=== PATIENT | female | born 1940 | race Caucasian/White ===

== ENCOUNTER 2023-10-25 13:00 | Inpatient (IN) | payer MEDICARE, SELFPAY ==
[2023-10-25] VITALS (22 sets, daily range): BP systolic 115–202; BP diastolic 67–97; PULSE 74–91; RESP 16–29; TEMP 36.1–36.6; O2SAT 95–99; BMI 27.7
--- NOTE | 2023-10-25 13:12 | DI.CT.S_ITS ---
PROCEDURE: CT CERVICAL SPINE WO CON INDICATIONS: fall, hip pain, altered TECHNIQUE: Noncontrast 3 mm thick sections acquired from the skull base to the T4 level. Sagittal and coronal reformats were then constructed. For radiation dose reduction, the following was used: automated exposure control, adjustment of mA and/or kV according to patient size. COMPARISON: None. FINDINGS: Image quality: Excellent. Bones: No fractures or dislocations. Visualized superior ribs are intact. Severe cervical spondylosis. Retrolisthesis of C5 on C6 with associated posterior disc osteophyte complex results in severe canal stenosis at that level. There is also significant multilevel bony foraminal narrowing. Soft tissues: Prevertebral soft tissues are normal in thickness. No paravertebral hematomas. No apical pneumothoraces. Severe biapical emphysematous change. IMPRESSION: 1. No acute cervical fracture or dislocation. 2. Cervical spondylosis with severe canal stenosis C5-C6. There is also severe multilevel foraminal narrowing. 3. Severe biapical emphysematous change. Dictated by: Dl Leung M.D. on 10/25/2023 at 14:09 Approved by: Dl Leung M.D. on 10/25/2023 at 14:12
--- NOTE | 2023-10-25 13:12 | DI.RAD.S_ITS ---
PROCEDURE: XR HIP W PEL IF DONE LT 2V INDICATIONS: fall, hip pain, altered TECHNIQUE: AP pelvis with lateral view(s) of the left hip(s). COMPARISON: [facility], , HIP 2V LEFT, 01/21/2007, 12:18. FINDINGS: Bones: No fractures or dislocations. Pelvic ring appears intact. No suspicious bony lesions. Moderate to severe bilateral hip arthritic change. No erosions. Degenerative changes are present within the lower lumbar spine. Soft tissues: The visualized bowel gas pattern is normal. No suspicious soft tissue calcifications. IMPRESSION: No visualized acute fracture or dislocation. However, if clinical concern and/or pain persist, short interval imaging followup in 7-10 days is recommended, as occult injury cannot be definitively excluded. Dictated by: Yasmin Pedraza M.D. on 10/25/2023 at 14:09 Approved by: Yasmin Pedraza M.D. on 10/25/2023 at 14:09
--- NOTE | 2023-10-25 13:12 | DI.CT.S_ITS ---
PROCEDURE: CT HEAD/BRAIN WO CON INDICATIONS: fall, hip pain, altered TECHNIQUE: Noncontrast 4.5 mm thick angled axial sections acquired from the foramen magnum to the vertex, with coronal and sagittal reformats. For radiation dose reduction, the following was used: automated exposure control, adjustment of mA and/or kV according to patient size. COMPARISON: [facility], CT, HEAD WITHOUT CONTRAST, 12/27/2007, 13:57. FINDINGS: Image quality: Diagnostic. CSF spaces: Basal cisterns are patent. No extra-axial fluid collections. The ventricles are symmetric in size and shape. Brain: No intracranial bleeds or masses. There is cerebral volume loss for age, with resultant ventricular and sulcal prominence. There are periventricular and deep white matter chronic small vessel ischemic changes. There is intracranial internal carotid artery atherosclerosis. Skull and face: Calvarium and visualized facial bones appear intact, without suspicious lesions. Sinuses: Visualized sinuses and mastoids are clear. IMPRESSION: No acute intracranial pathology. Dictated by: Dl Leung M.D. on 10/25/2023 at 14:08 Approved by: Dl Leung M.D. on 10/25/2023 at 14:09
--- NOTE | 2023-10-25 13:12 | DI.RAD.S_ITS ---
PROCEDURE: XR KNEE LT 1TO2V INDICATIONS: fall, hip pain, altered TECHNIQUE: 2 views of the knee were acquired. COMPARISON: [facility], , KNEE 3V RIGHT, 02/13/2008, 14:45. FINDINGS: Bones: No fractures or dislocations. No suspicious bony lesions. Moderate to severe tricompartmental early change most severe laterally. Periarticular osteophytes are present. No erosions. Soft tissues: Kvrn-ri-mondvtaf joint effusion. No suspicious soft tissue calcifications. 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 Dictated by: Yasmin Pedraza M.D. on 10/25/2023 at 14:10 Approved by: Yasmin Pedraza M.D. on 10/25/2023 at 14:10
--- NOTE | 2023-10-25 13:12 | DI.RAD.S_ITS ---
PROCEDURE: XR CHEST 1V INDICATIONS: fall, hip pain, altered TECHNIQUE: One view of the chest was acquired. COMPARISON: [facility], , CHEST 2 VIEW, 09/08/2008, 15:01. FINDINGS: Surgical changes and devices: None. Lungs and pleura: Mild increased vascularity. Mediastinum: Mediastinal contours appear normal. Heart size is enlarged. Bones and chest wall: No suspicious bony lesions. Overlying soft tissues appear unremarkable. IMPRESSION: Mild increased vascularity suggestive of edema. Dictated by: Yasmin Pedraza M.D. on 10/25/2023 at 14:09 Approved by: Yasmin Pedraza M.D. on 10/25/2023 at 14:09
--- NOTE | 2023-10-25 13:17 | ED_ITS ---
HPI - Fall General Chief Complaint: Fall Stated Complaint: GLF,hip pain,unknown downtime Time Seen by Provider: 10/25/23 13:04 Source: patient, EMS, RN notes reviewed and old records reviewed Mode of arrival: EMS Limitations: no limitations History of Present Illness HPI Narrative: This is an 83-year-old female with history of hypertension, dyslipidemia, patient has some known cognitive decline but was found down on the floor. Had a fall at some point patient does not recall if it was yesterday or today. EMS states she had urinated herself but it has since dried. No obvious skin breakdown. Family had tried to call her yesterday and could not get a hold of her and had checked her emails as she checks it daily she had emailed anyone yesterday. Patient can tell me her name she knows she has at a hospital she does not know where. She does not recall how she got here. She does note she has medical problems but can not tell me what they are. She has no known drug allergies. EMS notes that she has family who called in for a well check just how she was found. Patient was reportedly on aspirin every day as well as amlodipine, candesartan, atorvastatin, HCTZ and hydralazine daily. Patient currently lives independently family lives about an hour away but checks on her daily by phone. Related Data Home Medications Medication Instructions Recorded Confirmed AMLODIPINE BESYLATE (NORVASC) 5 mg PO Q DAY ##0 11/13/06 ASPIRIN (Aspirin *) 162 mg PO Q DAY ##0 11/13/06 Atorvastatin Calcium (Lipitor) 0 PO *UK DOSE/FREQUENCY ##0 11/13/06 Candesartan Cilexetil (Atacand) 16 mg PO Q DAY ##0 11/13/06 Fexofenadine Hydrochloride 0 PO * UK DOSE/FREQUENCY ##0 11/13/06 (Radha) VITAMIN C - 0 PO * UK DOSE/FREQUENCY ##0 11/13/06 (VITAMIN C) [CALCIUM-MAG.] ##0 11/13/06 [FISH CAPS] ##0 11/13/06 [SELENIUM] 200 mcg Q DAY ##0 11/13/06 [] 25 mg PO DAILY ##0 11/13/06 Allergies Allergy/AdvReac Type Severity Reaction Status Date / Time codeine AdvReac Unknown wipes her Verified 10/25/23 13:20 out Review of Systems Review of Systems ROS Unobtainable: All systems reviewed & are unremarkable except as noted in HPI and below Patient History Social History Smoking Status: Never smoker Exam Narrative Exam Narrative: GEN: C-collar prior to arrival. Patient appears in mild distress. HEAD: No evidence of trauma, no raccoon/Marx sign. NECK: Nontender, painless range of motion, trachea midline Positive Nexus criteria, no midline line tenderness, distracting injury, positive for altered mental status, no neuro deficit, recent EtOH. EYES: PERRLA, EOMI ENT: External inspection normal, trachea is midline, TM's are normal no hemotypanum, Nares are clear, no septal hematoma, no dental or oral injury, airway is normal and with normal occlusion, No bony tenderness, mucous membranes are dry. RESP: Chest is nontender and has symmetric movement, no ecchymosis, breath sounds are normal no crackles, wheezes or rales CVS: Heart sounds are normal, no murmur noted, No JVD. ABG/GI: Nontender, soft, normal bowel sounds, no distention, no organomegaly, pelvic rock is negative NEURO: Oriented AOx3, neuro is grossly intact, sensation and motor is normal all 4 extremities moving, cranial nerves II through XII are intact, GCS is 14 PSYCH: Normal mood and affect SKIN: Intact, warm and dry, no crepitus and without decubitus BACK: No CVA tenderness, no vertebral tenderness, no step-off's, no crepitus EXT: Atraumatic, hips are nontender, but patient does have pain with movement of her left hip and knee. She does not have any clearly palpable pain she can not straighten her leg. No pedal edema, normal color and temperature, normal range of motion of extremities with normal tendon exam, 2+ pulses in all four extremities Initial Vital Signs Initial Vital Signs: Vital Signs Pulse Rate 81 10/25/23 13:05 Pulse Oximetry 98 10/25/23 13:05 Course Orders Ordered: ED Orders 10/25/23 13:12 CT cervical spine wo con Stat CT head/brain wo con Stat Chest [XR chest 1V] Stat XR hip w pel if done LT 2V Stat XR knee LT 1to2V Stat EKG-12 Lead Stat 10/25/23 13:13 Complete Blood Count AUTO DIFF Stat Comprehensive Metabolic Panel Stat Lipase Stat Prothrombin Time INR Stat Troponin & CK Cardiac Panel Stat Urinalysis and Microscopic Stat 10/25/23 14:22 US abdomen limited Stat 10/25/23 15:26 BNP [NT-proBNP (BNP-Adult 18+)] Stat Blood Culture Stat CK [Creatine Kinase] Stat Lactate (Lactic Acid) Stat Procalcitonin Stat Trop I [Troponin I] Stat Discontinued Medications Sodium Chloride (Normal Saline 0.9%) 1,000 mls @ 1,000 mls/hr IV BOLUS ONE Stop: 10/25/23 14:11 Last Infusion: 10/25/23 16:01 Dose: Infused Documented By: JOSE M Admin: 10/25/23 14:16 Dose: 1,000 mls/hr Documented By: JOSE M Ceftriaxone Sodium 1,000 mg/ (Sodium Chloride) 100 mls @ 200 mls/hr IV NOW ONE Stop: 10/25/23 14:21 Last Infusion: 10/25/23 16:12 Dose: Infused Documented By: Admin: 10/25/23 15:21 Dose: 200 mls/hr Documented By: JOSE M Vital Signs Vital signs: Vital Signs - 8 hr 10/25/23 13:05 10/25/23 13:07 10/25/23 13:07 Temperature Pulse Rate 81 77 Respiratory Rate Blood Pressure 202/97 H Pulse Oximetry 98 95 Oxygen Delivery Method 10/25/23 13:30 10/25/23 13:31 10/25/23 13:31 Temperature Pulse Rate 78 79 Respiratory Rate 16 19 Blood Pressure 175/82 H Pulse Oximetry 97 96 Oxygen Delivery Method 10/25/23 13:59 10/25/23 13:59 10/25/23 14:00 Temperature Pulse Rate 81 84 Respiratory Rate 16 18 Blood Pressure 193/84 H Pulse Oximetry 98 98 Oxygen Delivery Method 10/25/23 14:00 10/25/23 14:30 10/25/23 14:31 Temperature Pulse Rate 80 80 Respiratory Rate 21 17 Blood Pressure 193/77 H Pulse Oximetry 98 99 Oxygen Delivery Method 10/25/23 14:31 10/25/23 14:39 10/25/23 15:00 Temperature 97.8 F Pulse Rate 74 87 Respiratory Rate 19 20 Blood Pressure 181/81 H 181/81 H Pulse Oximetry 98 98 Oxygen Delivery Method Room Air 10/25/23 15:00 10/25/23 15:30 10/25/23 16:00 Temperature Pulse Rate 84 82 Respiratory Rate 23 16 Blood Pressure 193/84 H Pulse Oximetry 98 97 Oxygen Delivery Method 10/25/23 16:08 10/25/23 16:08 10/25/23 16:30 Temperature Pulse Rate 89 85 Respiratory Rate 22 Blood Pressure 165/85 H Pulse Oximetry 98 97 Oxygen Delivery Method 10/25/23 16:31 10/25/23 16:31 10/25/23 17:00 Temperature Pulse Rate 91 H 87 Respiratory Rate 21 Blood Pressure 115/97 H Pulse Oximetry 98 99 Oxygen Delivery Method 10/25/23 17:00 10/25/23 17:30 10/25/23 17:30 Temperature Pulse Rate 83 Respiratory Rate 22 Blood Pressure 162/72 H 143/76 H Pulse Oximetry 98 Oxygen Delivery Method MDM - Fall Lab Data 10/25/23 13:13 10/25/23 13:13 Labs: Lab Results 10/25/23 10/25/23 Range/Units 13:13 15:26 WBC 17.3 H (4.5-11.0) X10^3/uL RBC 5.23 H (4.0-5.2) X10^6/uL Hgb 16.2 H (12.0-16.0) g/dL Hct 47.7 H (36-46) % MCV 91.2 (80-100) fL MCH 31.0 (26-34) PG MCHC 33.9 (30-36) % RDW 14.1 (11.6-14.8) % Plt Count 279 (150-400) X10^3/uL Neut % (Auto) 90.8 H (50-75) % Lymph % (Auto) 2.9 L (25-40) % [place] % (Auto) 5.9 (3-14) % Eos % (Auto) 0.2 L (2-4) % Baso % (Auto) 0.2 (0-2) % Neut # (Auto) 21261 H (7472-5672) /uL Lymph # (Auto) 500 L (7842-1726) /uL [place] # (Auto) 1000 H (0-900) /uL Eos # (Auto) 0 (0-450) /uL Baso # (Auto) 0 (0-100) /uL PT 15.1 H (9.4-12.5) SECONDS INR 1.3 (0.9-1.3) Sodium 137 (137-145) mmol/L Potassium 3.5 (3.4-5.1) mmol/L Chloride 104 (98-107) mmol/L Carbon Dioxide 23 (22-32) mmol/L BUN 31 H (7-17) mg/dL Creatinine 0.66 (0.52-1.04) mg/dL Estimated GFR > 60 (>60) mL/min BUN/Creatinine Ratio 47.0 H (6-22) Glucose 107 (80-110) mg/dL Lactate 1.7 (0.7-2.1) mmol/L Calcium 9.7 (8.4-10.2) mg/dL Total Bilirubin 3.1 H (0.2-1.3) mg/dL AST 116 H (14-36) IU/L ALT 48 H (<35) IU/L Alkaline Phosphatase 74 (38-126) U/L Total Creatine Kinase 1048 H 950 H (30-135) U/L Troponin I 0.129 H* 0.121 H* (0.01-0.034) ng/mL NT-Pro-B Natriuret Pep 5780 H (<450) pg/mL Total Protein 7.7 (6.3-8.2) g/dL Albumin 4.3 (3.5-5.0) g/dL Globulin 3.4 (1.7-4.1) g/dL Albumin/Globulin Ratio 1.3 (1.0-2.8) Lipase < 10 L (23-300) U/L Procalcitonin 0.11 (<0.5) ng/mL Urine Color Yellow Urine Appearance Clear Urine pH 6.0 (4.5-8.0) Ur Specific [place] 1.020 (1.000-1.035) Urine Protein 1+ H (Negative) Urine Glucose (UA) Negative (Negative) g/dL Urine Ketones 1+ H (NEGATIVE) Urine Occult Blood Negative (Negative) Urine Nitrate Negative (Negative) Urine Bilirubin Negative (NEGATIVE) Urine Urobilinogen 0.2 (0.2) E.U./dL Ur Leukocyte Esterase Trace H (NEGATIVE) Urine RBC 0-1/hpf (0-5/HPF) Urine WBC 0-1/hpf (0-5/HPF) Ur Squamous Epith Cells 5-10 /hpf H (0-5/HPF) Urine Bacteria Occasional (0-1) (None) Ur Culture Indicated? Cult not indicated Vol Urine Centrifuged 10ml (spun) ECG Data Attestation: I personally reviewed and interpreted this ECG as follows: Prior ECG tracings: not available for review Interpretation: Sinus rhythm rate 80 ME 134 QRS of [address] elevation, nonspecific change. No priors for comparison. MDM Narrative Medical decision making narrative: 83-year-old female with suspected ground level fall but unwitnessed patient does not recall how she fell either today or yesterday. Patient was last seen yesterday. Has some known chronic cognitive decline but worsened from baseline. Patient does have some complaints of left hip or knee pain she does not have any bony tenderness but does have pain when moved although can not really localize easily to hip or knee. Patient appears dry overall. Labs white count of 17 hemoglobin 16, platelets of 279. INR 1.5 electrolytes sodium 137 potassium 3 5 chloride 104 CO2 23 BUN 31 creatinine 0.6 glucose of 107 lactate Procalcitonin Total bili 3.1 with AST of 116 ALT of 48 alk-phos is 74 lipase is less than 10. Total CK is 1048, trending down words at 9:50 a.m.. Initial troponin was 0.129 and positive, repeat is slightly improved at 0.121 BNP is 57 80 EKG patient has some T-wave inversion 2 3 AVF no elevation. No priors for comparison Urine 1+ protein, 1+ ketones trace leuks 5-[address] shows no acute change CT C-spine shows no acute fracture cervical spondylosis severe canal stenosis with multilevel foraminal narrowing CV your biapical emphysematous change. Chest x-ray shows increased vascularity suggestive edema. Hip x-ray shows no acute fracture dislocation. Knee shows [id number] tricompartmental arthritic change progressive since 2007 but no fracture. Aazu-ky-toemanzy joint effusion. Abdominal ultrasound shows liver measuring 10.4 cm no focal mass gallbladder absent common bile duct 3.9 mm pancreas visualized unremarkable. Patient's daughters at bedside patient does have a POLST form she is DNR/DNI after discussion and review patient's findings her repeat troponin which is slightly trended down words. She notes that her mother would not wish to continue with care and would want to be comfort measures only. Had a long discussion about level of care no antibiotics, no interventions on once comfort measures only only. She does note she would labs drawn last week at that time her bilirubin was 1.7. She has had some mild cognitive decline over time but not anything to this level and patient is actively hallucinating in the room. Call Dr. Blackman, hospitalist accepts for observation. Reviewed goals of care with family. Did update pulse form, patient is DNR/DNI/comfort measures only. Discharge Plan Departure Patient Disposition: Admitted as Observation Clinical Impression: Fall, Acute UTI, Altered mental status, Non-ST elevation OR (NSTEMI), Elevated LFTs Prescriptions: No Action AMLODIPINE BESYLATE (NORVASC) 5 mg PO Q DAY Qty: 0 Candesartan Cilexetil (Atacand) 16 mg PO Q DAY Qty: 0 [] 25 mg PO DAILY Qty: 0 Atorvastatin Calcium (Lipitor) 0 PO *UK DOSE/FREQUENCY Qty: 0 Fexofenadine Hydrochloride (Radha) 0 PO * UK DOSE/FREQUENCY Qty: 0 VITAMIN C - (VITAMIN C) 0 PO * UK DOSE/FREQUENCY Qty: 0 [FISH CAPS] Qty: 0 ASPIRIN (Aspirin *) 162 mg PO Q DAY Qty: 0 [CALCIUM-MAG.] Qty: 0 [SELENIUM] 200 mcg Q DAY Qty: 0 Admit Date/Time: 10/25/23 18:25
[2023-10-25 13:38] LABS: Add Manual Diff / Slide Review NO; Basophils Absolute Auto 0 /uL (0-100); Basophils Percent Auto 0.2 % (0-2); Eosinophils Absolute Auto 0 /uL (0-450); Eosinophils Percent Auto 0.2 % (2-4); Hematocrit 47.7 % (36-46); Hemoglobin 16.2 g/dL (12.0-16.0); Lymphocytes Absolute Auto 500 /uL (1100-4500); Lymphocytes Percent Auto 2.9 % (25-40); Mean Corpuscular HGB Conc 33.9 % (30-36); Mean Corpuscular Volume 91.2 fL (80-100); Monocytes Absolute Auto 1000 /uL (0-900); Monocytes Percent Auto 5.9 % (3-14); Neutrophils Absolute Auto 15700 /uL (1500-7000); Neutrophils Percent Auto 90.8 % (50-75); Platelet Count 279 X10^3/uL (150-400); Red Blood Cell Count 5.23 X10^6/uL (4.0-5.2); Red Cell Distribution Width 14.1 % (11.6-14.8); White Blood Cell Count 17.3 X10^3/uL (4.5-11.0)
[2023-10-25 13:41] LABS: Appearance Urine UA CLEAR; Bilirubin Urine UA NEGATIVE (NEGATIVE); Color Urine UA YELLOW; Glucose Urine UA NEGATIVE (Negative); Ketones Urine UA 1+ (NEGATIVE); Leukocyte Esterase Urine UA TRACE (NEGATIVE); Nitrite Urine UA NEGATIVE (Negative); Occult Blood Urine UA NEGATIVE (Negative); Protein Urine UA 1+ (Negative); Urobilinogen Urine UA 0.2 E.U./dL (0.2)
[2023-10-25 13:46] LABS: INR 1.3 (0.9-1.3); Prothrombin Time 15.1 SECONDS (9.4-12.5)
[2023-10-25 13:50] LABS: Alanine Aminotransferase 48 IU/L (<35); Albumin 4.3 g/dL (3.5-5.0); Albumin Globulin Ratio 1.3 (1.0-2.8); Alkaline Phosphatase 74 U/L (38-126); Aspartate Aminotransferase 116 IU/L (14-36); Bilirubin Total 3.1 mg/dL (0.2-1.3); Blood Urea Nitrogen 31 mg/dL (7-17); Calcium 9.7 mg/dL (8.4-10.2); Carbon Dioxide 23 mmol/L (22-32); Chloride 104 mmol/L (98-107); Creatine Kinase 1048 U/L (30-135); Estimated Glomerular Filt Rate > 60 mL/min (>60); Globulin 3.4 g/dL (1.7-4.1); Glucose 107 mg/dL (80-110); HEMOLYSIS 21 (0-50); Potassium 3.5 mmol/L (3.4-5.1); Sodium 137 mmol/L (137-145); Total Protein 7.7 g/dL (6.3-8.2)
[2023-10-25 13:52] LABS: Bacteria Urine Occasional (0-1); Culture Indicated Urine Cult Not Indicated; RBC Urine 0-1/HPF (0-5/HPF); Squamous Epithelial Cell Urine 5-10 /HPF (0-5/HPF); Urine Volume 10mL (spun); WBC Urine 0-1/HPF (0-5/HPF)
[2023-10-25 14:15] LABS: Lipase < 10 U/L (23-300)
[2023-10-25] MEDS: SODIUM CHLORIDE 0.9% 1,000 ML 1000 ML IV (14:16)
[2023-10-25 14:17] LABS: Troponin I 0.129 ng/mL (0.01-0.034)
--- NOTE | 2023-10-25 14:22 | DI.US.S_ITS ---
PROCEDURE: US ABDOMEN LIMITED INDICATIONS: LEUKOCYTOSIS; ELEVATED LFTS TECHNIQUE: Real-time focused scanning was performed of the abdomen, with image documentation. COMPARISON: None. FINDINGS: Liver measures 10.4 cm. No focal mass. Gallbladder is absent. Common bile duct measures 3.9 mm. Pancreas within visualized portions is unremarkable. IMPRESSION: No focal hepatic mass. Dictated by: Yasmin Pedraza M.D. on 10/25/2023 at 15:18 Approved by: Yasmin Pedraza M.D. on 10/25/2023 at 15:18
[2023-10-25] MEDS: cefTRIAXone 1,000 MG in SODIUM CHLORIDE 0.9% 100 ML 200 MG IV (15:21)
[2023-10-25 15:42] LABS: Creatine Kinase 950 U/L (30-135)
[2023-10-25 15:52] LABS: NT-proBNP (BNP-Adult 18+) 5780 pg/mL (<450)
[2023-10-25 15:55] LABS: Lactate (Lactic Acid) 1.7 mmol/L (0.7-2.1)
[2023-10-25 16:04] LABS: Troponin I 0.121 ng/mL (0.01-0.034)
[2023-10-25 16:12] LABS: Procalcitonin 0.11 ng/mL (<0.5)
--- NOTE | 2023-10-25 16:12 | PC.NURSE ---
Pt's daughter reports patient is having increased hallucinations and is arguing with hallucinations. Pt pulling at IV lines. I applied IV tubing netting over IV's on left arm. Pt oriented to room and call light.
--- NOTE | 2023-10-25 18:23 | PC.NURSE ---
in and out cath
--- NOTE | 2023-10-25 21:58 | P.HP_ITS ---
History of Present Illness History of Present Illness Date Patient Seen: 10/25/23 Time Patient Seen: 21:00 Chief complaint: GLF,hip pain,unknown downtime Narrative: 83-year-old female with history of hypertension, dyslipidemia, patient has some known cognitive decline but was found down on the floor. Had a fall at some point patient does not recall if it was yesterday or today. EMS states she had urinated herself but it has since dried. No obvious skin breakdown. Family had tried to call her yesterday and could not get a hold of her At the time of admission unable to provide history, drowsy, confused [facility] Medical History (Updated 10/26/23 @ 06:49 by Akhil aKng MD) HTN (hypertension) Cognitive deficits Social History household members: none Smoking Status: Never smoker alcohol intake: former Meds Home Medications and Allergies Home Medications Medication Instructions Recorded Confirmed Type AMLODIPINE BESYLATE (NORVASC) 2.5 mg PO DAILY ##0 11/13/06 10/25/23 History Candesartan Cilexetil (Atacand) 32 mg PO DAILY ##0 11/13/06 10/25/23 History fluticasone fur. 100 mcg-umeclid 1 ea inhalation DAILY 10/25/23 10/25/23 History 62.5 mcg-vilant 25 mcg inhalat.powder (Trelegy Ellipta) hydralazine 25 mg tablet 25 mg PO TID 10/25/23 10/25/23 History hydrochlorothiazide 25 mg tablet 25 mg PO QAM 10/25/23 10/25/23 History simvastatin 20 mg tablet 10 mg PO ONCE PM 10/25/23 10/25/23 History Allergies Allergy/AdvReac Type Severity Reaction Status Date / Time codeine AdvReac Unknown wipes her Verified 10/25/23 13:20 out Review of Systems Review of Systems Narrative: Unobtainable due to encephalopathy and cognitive deficits Exam Vital Signs (past 8 hours): - 10/25/23 13:59 10/25/23 13:59 10/25/23 14:00 Temperature Pulse Rate 81 84 Respiratory Rate 16 18 Blood Pressure 193/84 H Pulse Oximetry 98 98 Oxygen Delivery Method Oxygen Flow Rate 10/25/23 14:00 10/25/23 14:30 10/25/23 14:31 Temperature Pulse Rate 80 80 Respiratory Rate 21 17 Blood Pressure 193/77 H Pulse Oximetry 98 99 Oxygen Delivery Method Oxygen Flow Rate 10/25/23 14:31 10/25/23 14:39 10/25/23 15:00 Temperature 97.8 F Pulse Rate 74 87 Respiratory Rate 19 20 Blood Pressure 181/81 H 181/81 H Pulse Oximetry 98 98 Oxygen Delivery Method Room Air Oxygen Flow Rate 10/25/23 15:00 10/25/23 15:30 10/25/23 16:00 Temperature Pulse Rate 84 82 Respiratory Rate 23 16 Blood Pressure 193/84 H Pulse Oximetry 98 97 Oxygen Delivery Method Oxygen Flow Rate 10/25/23 16:08 10/25/23 16:08 10/25/23 16:30 Temperature Pulse Rate 89 85 Respiratory Rate 22 Blood Pressure 165/85 H Pulse Oximetry 98 97 Oxygen Delivery Method Oxygen Flow Rate 10/25/23 16:31 10/25/23 16:31 10/25/23 17:00 Temperature Pulse Rate 91 H 87 Respiratory Rate 21 Blood Pressure 115/97 H Pulse Oximetry 98 99 Oxygen Delivery Method Oxygen Flow Rate 10/25/23 17:00 10/25/23 17:30 10/25/23 17:30 Temperature Pulse Rate 83 Respiratory Rate 22 Blood Pressure 162/72 H 143/76 H Pulse Oximetry 98 Oxygen Delivery Method Oxygen Flow Rate 10/25/23 18:00 10/25/23 18:00 10/25/23 18:30 Temperature Pulse Rate 86 84 Respiratory Rate 16 19 Blood Pressure 153/68 H Pulse Oximetry 99 98 Oxygen Delivery Method Oxygen Flow Rate 10/25/23 19:00 10/25/23 19:01 10/25/23 19:01 Temperature Pulse Rate 86 87 Respiratory Rate 28 H 29 H Blood Pressure 159/67 H Pulse Oximetry 99 99 Oxygen Delivery Method Oxygen Flow Rate 10/25/23 19:18 Temperature 97 F L Pulse Rate 79 Respiratory Rate 17 Blood Pressure 144/67 H Pulse Oximetry 98 Oxygen Delivery Method Oxygen Flow Rate 0 Oxygen Delivery Method Room Air Oxygen Flow Rate 0 Const Other: in no distress, laying in bed Resp Other: normal respiratory effort Cardio Other: RRR Other: w/o abdominal distension placed Watt in the ED Skin Other: bruising - both legs, right arm pressure wound on sacrum Neuro Other: w/o focal weakness Extrem Other: w/o swelling Psych Other: cognitive deficits Objective Labs 10/26/23 05:40 10/26/23 05:40 Labs: Laboratory Results - last 24 hr 10/25/23 10/25/23 13:13 15:26 WBC 17.3 H RBC 5.23 H Hgb 16.2 H Hct 47.7 H MCV 91.2 MCH 31.0 MCHC 33.9 RDW 14.1 Plt Count 279 Neut % (Auto) 90.8 H Lymph % (Auto) 2.9 L [place] % (Auto) 5.9 Eos % (Auto) 0.2 L Baso % (Auto) 0.2 Neut # (Auto) 20554 H Lymph # (Auto) 500 L [place] # (Auto) 1000 H Eos # (Auto) 0 Baso # (Auto) 0 PT 15.1 H INR 1.3 Sodium 137 Potassium 3.5 Chloride 104 Carbon Dioxide 23 BUN 31 H Creatinine 0.66 Estimated GFR > 60 BUN/Creatinine Ratio 47.0 H Glucose 107 Lactate 1.7 Calcium 9.7 Total Bilirubin 3.1 H AST 116 H ALT 48 H Alkaline Phosphatase 74 Total Creatine Kinase 1048 H 950 H Troponin I 0.129 H* 0.121 H* NT-Pro-B Natriuret Pep 5780 H Total Protein 7.7 Albumin 4.3 Globulin 3.4 Albumin/Globulin Ratio 1.3 Lipase < 10 L Procalcitonin 0.11 Urine Color Yellow Urine Appearance Clear Urine pH 6.0 Ur Specific [place] 1.020 Urine Protein 1+ H Urine Glucose (UA) Negative Urine Ketones 1+ H Urine Occult Blood Negative Urine Nitrate Negative Urine Bilirubin Negative Urine Urobilinogen 0.2 Ur Leukocyte Esterase Trace H Urine RBC 0-1/hpf Urine WBC 0-1/hpf Ur Squamous Epith Cells 5-10 /hpf H Urine Bacteria Occasional (0-1) Ur Culture Indicated? Cult not indicated Vol Urine Centrifuged 10ml (spun) Assessment & Plan Assessment and plan (1) Acute UTI: Status: Acute (2) Acute metabolic encephalopathy: Status: Acute (3) Cognitive deficits: Status: Acute (4) HTN (hypertension): Status: Acute Assessment & Plan narrative: UTI with Acute Metabolic Encephalopathy - Abx, supportive care - she was retaining, now with Watt - voiding trial Cognitive deficits / dementia - supportive care HTN - holding ARB, HCTZ and Norvasc - continue hydralazine COPD - Trellegy E., prn albuterol DVT prophylaxis - SCDs Patient is DNR, DNI, comfort measures
[2023-10-26] VITALS (7 sets, daily range): BP systolic 119–127; BP diastolic 41–51; PULSE 60–88; RESP 16–18; TEMP 37.6; O2SAT 95–99
[2023-10-26 06:00] LABS: Add Manual Diff / Slide Review NO; BUN Creatinine Ratio 54.1 (6-22); Basophils Absolute Auto 0 /uL (0-100); Basophils Percent Auto 0.3 % (0-2); Blood Urea Nitrogen 33 mg/dL (7-17); Calcium 8.9 mg/dL (8.4-10.2); Carbon Dioxide 26 mmol/L (22-32); Chloride 109 mmol/L (98-107); Eosinophils Absolute Auto 200 /uL (0-450); Eosinophils Percent Auto 1.3 % (2-4); Estimated Glomerular Filt Rate > 60 mL/min (>60); Glucose 95 mg/dL (80-110); HEMOLYSIS < 15 (0-50); Hematocrit 40.1 % (36-46); Hemoglobin 13.7 g/dL (12.0-16.0); Lymphocytes Absolute Auto 800 /uL (1100-4500); Lymphocytes Percent Auto 6.2 % (25-40); Mean Corpuscular HGB Conc 34.1 % (30-36); Mean Corpuscular Hemoglobin 30.9 PG (26-34); Mean Corpuscular Volume 90.7 fL (80-100); Monocytes Absolute Auto 1000 /uL (0-900); Monocytes Percent Auto 7.4 % (3-14); Neutrophils Absolute Auto 11500 /uL (1500-7000); Neutrophils Percent Auto 84.8 % (50-75); Platelet Count 242 X10^3/uL (150-400); Potassium 3.2 mmol/L (3.4-5.1); Red Blood Cell Count 4.42 X10^6/uL (4.0-5.2); Red Cell Distribution Width 14.4 % (11.6-14.8); Sodium 140 mmol/L (137-145); White Blood Cell Count 13.6 X10^3/uL (4.5-11.0)
[2023-10-26 11:23] LABS: Magnesium 1.9 mg/dL (1.6-2.3)
[2023-10-26] MEDS: POTASSIUM CHLORIDE 20 MEQ TAB 40 MEQ PO (12:09)
[2023-10-26] MEDS: SODIUM CHLORIDE 0.9% 1,000 ML 100 ML IV (12:10)
[2023-10-26] MEDS: risperiDONE 0.25 MG TABLET 0.5 MG PO ×2 (12:11→21:35)
--- NOTE | 2023-10-26 14:27 | CM.DANOTE ---
Initial DCP Assessment Note Pt is an 83 yo female, resident of [place], presents via EMS after being found down by family in her home. Admitted for further work up and medical management. UTI+ PCP: Unknown at this time Payer: [facility]/[employer] Reviewed chart, patient discussed with Dr Morales. Patient now with an increase in hallucinations and confusion. Family reports patient has hx of Schizophrenia with a psychiatric hospital stay 50 years ago; stable since with depressive sx. Met w/patient's daughter Viridiana and her spouse, introduced role. Family concerned about patient and unsure next steps in discharge planning. Explained that Dr Morales is likely to start an anti-psychotic to see how patient responds, medical plan of care still unfolding and patient's discharge needs unknown at this time. Lengthy conversation with family about patient's general decline at home; discussed options for detention care. Patient lives alone in [place], adult daughter and spouse work, able to come check on patient throughout the week. Family reports an increase in their visits recently to assist patient and feel there has been a cognitive decline over the last year. Family has offered to move patient in with them and patient has declined this so far. Patient has the funding for in home care vs facility care, family report she needs someone with her at night r/t increase in falls. CM team will plan to follow clinical course closely. Discharge needs remain unknown. Unsure whether patient will be considered safe for return home w/HH and family to assist (?) Following for dispo coordination. SD Muñoz Discharge Planning/Care Management CM Discharge Assessment Start: 10/26/23 14:24 Freq: Status: Active Protocol: Document 10/26/23 14:25 COLIN (Rec: 10/26/23 14:27 COLIN [id number]) Discharge Planning Assessment Assigned Ship Worker SD Garcia DPOA/Assigned Designee Name Viridiana Farah, gar[place] Contact Information [phone] Advance Directives? No History Provided By Family Member,Medical Record Prior Living Arrangements House Household Members none Type of transporation used prior to Drives own vehicle admit Independent with ADL's Yes Is patient alert and oriented? Yes: Cognitive decline noted by family Barriers to Discharge Yes Comment Patient currently not at cognitive or functional baseline Transportation Arrangement TBD Additional Comment TBD
[2023-10-26] MEDS: ACETAMINOPHEN 325 MG TABLET 650 MG PO (15:22)
[2023-10-26] MEDS: HYDRALAZINE 25 MG TABLET PO ×2 (15:25→21:35)
[2023-10-26] MEDS: IPRATROPIUM 0.5 MG/2.5 ML NEB INH ×2 (15:48→20:24)
--- NOTE | 2023-10-26 17:51 | PM.PN.1 ---
Subjective Subjective Interval history: Patient actively hallucinating and having delusions. According to daughter and son-in-law she was normal a few days ago. They also noted she has a history of schizophrenia diagnosed in the s and was at that time in a mental hospital. Hasn't been on psych meds since the . Spoke with psychiatry who recommending trialing risperidone. Exam Vital Signs (past 8 hours): - 10/26/23 12:12 10/26/23 15:25 10/26/23 15:48 Pulse Rate 74 72 88 Respiratory Rate 18 Blood Pressure 127/45 L 122/41 L Pulse Oximetry 96 Oxygen Delivery Method Room Air Oxygen Delivery Method Room Air Oxygen Flow Rate 0 Const Other: in no distress, laying in bed, confused Resp Other: normal respiratory effort Cardio Other: RRR Other: w/o abdominal distension placed Watt in the ED Skin Other: bruising - both legs, right arm pressure wound on sacrum Neuro Other: w/o focal weakness Extrem Other: w/o swelling Psych Other: disoriented, delusional Objective Labs 10/26/23 05:40 10/26/23 05:40 Labs: Laboratory Results - last 24 hr 10/26/23 05:40 WBC 13.6 H RBC 4.42 Hgb 13.7 Hct 40.1 MCV 90.7 MCH 30.9 MCHC 34.1 RDW 14.4 Plt Count 242 Neut % (Auto) 84.8 H Lymph % (Auto) 6.2 L [place] % (Auto) 7.4 Eos % (Auto) 1.3 L Baso % (Auto) 0.3 Neut # (Auto) 08516 H Lymph # (Auto) 800 L [place] # (Auto) 1000 H Eos # (Auto) 200 Baso # (Auto) 0 Sodium 140 Potassium 3.2 L Chloride 109 H Carbon Dioxide 26 BUN 33 H Creatinine 0.61 Estimated GFR > 60 BUN/Creatinine Ratio 54.1 H Glucose 95 Calcium 8.9 Magnesium 1.9 PFSH Medical History (Updated 10/26/23 @ 06:49 by Akhil Kang MD) HTN (hypertension) Cognitive deficits Social History household members: none Smoking Status: Never smoker alcohol intake: former Assessment & Plan Assessment & Plan narrative: Acute hallucinations with 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 Nishant frazier who recommending starting risperidone 0.5mg BID and titrating up as needed - UA negative for UTI - head CT negative Urinary retention - she was retaining, now with Watt HTN - holding ARB, HCTZ and Norvasc - continue hydralazine COPD - Jeff Willoughby, prn albuterol DVT prophylaxis - SCDs Patient is DNR/DNI Dispo: Pending improvement in mentation and hallucinations. May need placement.
[2023-10-26] MEDS: cefTRIAXone 1,000 MG in SODIUM CHLORIDE 0.9% 100 ML 200 MG IV (18:14)
[2023-10-26] MEDS: BUDESONIDE 0.5 MG/2 ML NEB INH (20:24)
[2023-10-26] MEDS: polyethylene glycoL 3350 17 GM POWD.PACK PO (21:35)
[2023-10-26] MEDS: SENNOSIDES 8.6 MG TABLET PO (21:35)
[2023-10-27] VITALS (7 sets, daily range): BP systolic 112–120; BP diastolic 56–64; PULSE 66–85; RESP 14–18; TEMP 35.8–36.6; O2SAT 95–97
[2023-10-27] MEDS: ACETAMINOPHEN 325 MG TABLET 650 MG PO ×2 (06:05→21:22)
[2023-10-27 06:08] LABS: Add Manual Diff / Slide Review NO; Basophils Absolute Auto 0 /uL (0-100); Basophils Percent Auto 0.4 % (0-2); Eosinophils Absolute Auto 200 /uL (0-450); Eosinophils Percent Auto 2.3 % (2-4); Hematocrit 38.5 % (36-46); Hemoglobin 13.2 g/dL (12.0-16.0); Lymphocytes Absolute Auto 700 /uL (1100-4500); Lymphocytes Percent Auto 6.7 % (25-40); Mean Corpuscular HGB Conc 34.3 % (30-36); Mean Corpuscular Volume 90.6 fL (80-100); Monocytes Absolute Auto 900 /uL (0-900); Monocytes Percent Auto 8.1 % (3-14); Neutrophils Absolute Auto 8600 /uL (1500-7000); Neutrophils Percent Auto 82.5 % (50-75); Platelet Count 221 X10^3/uL (150-400); Red Blood Cell Count 4.25 X10^6/uL (4.0-5.2); Red Cell Distribution Width 14.5 % (11.6-14.8); White Blood Cell Count 10.5 X10^3/uL (4.5-11.0)
[2023-10-27 06:21] LABS: Blood Urea Nitrogen 27 mg/dL (7-17); Calcium 8.3 mg/dL (8.4-10.2); Carbon Dioxide 25 mmol/L (22-32); Chloride 108 mmol/L (98-107); Estimated Glomerular Filt Rate > 60 mL/min (>60); Glucose 113 mg/dL (80-110); HEMOLYSIS < 15 (0-50); Potassium 3.5 mmol/L (3.4-5.1); Sodium 137 mmol/L (137-145)
[2023-10-27] MEDS: SENNOSIDES 8.6 MG TABLET PO ×2 (10:18→21:23)
[2023-10-27] MEDS: risperiDONE 0.25 MG TABLET 0.5 MG PO ×2 (10:19→21:23)
[2023-10-27] MEDS: POTASSIUM CHLORIDE 20 MEQ TAB PO (10:19)
[2023-10-27] MEDS: HYDRALAZINE 25 MG TABLET PO ×3 (10:20→21:23)
--- NOTE | 2023-10-27 14:35 | PM.PN.1 ---
Subjective Subjective Interval history: Patient less confused today. Knows the month and the year. Exam Vital Signs (past 8 hours): - 10/27/23 06:40 10/27/23 09:35 10/27/23 10:20 Temperature 96.5 F L 97.8 F Pulse Rate 78 85 85 Respiratory Rate 18 18 Blood Pressure 119/56 L 120/64 120/64 Pulse Oximetry 97 97 Oxygen Flow Rate 0 Oxygen Delivery Method Room Air Oxygen Flow Rate 0 Const Other: in no distress, laying in bed, pleasant Resp Other: normal respiratory effort Cardio Other: RRR Other: w/o abdominal distension placed Watt in the ED Skin Other: bruising - both legs, right arm pressure wound on sacrum Neuro Other: w/o focal weakness Extrem Other: w/o swelling Psych Other: oriented x2, much less confused today Objective Labs 10/27/23 05:35 10/27/23 05:35 Labs: Laboratory Results - last 24 hr 10/27/23 05:35 WBC 10.5 RBC 4.25 Hgb 13.2 Hct 38.5 MCV 90.6 MCH 31.0 MCHC 34.3 RDW 14.5 Plt Count 221 Neut % (Auto) 82.5 H Lymph % (Auto) 6.7 L [place] % (Auto) 8.1 Eos % (Auto) 2.3 Baso % (Auto) 0.4 Neut # (Auto) 8600 H Lymph # (Auto) 700 L [place] # (Auto) 900 Eos # (Auto) 200 Baso # (Auto) 0 Sodium 137 Potassium 3.5 Chloride 108 H Carbon Dioxide 25 BUN 27 H Creatinine 0.60 Estimated GFR > 60 BUN/Creatinine Ratio 45.0 H Glucose 113 H Calcium 8.3 L PFSH Medical History (Updated 10/26/23 @ 06:49 by Akhil Kang MD) HTN (hypertension) Cognitive deficits Social History household members: none Smoking Status: Never smoker alcohol intake: former Assessment & Plan Assessment & Plan narrative: Acute hallucinations with 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 Nishant frazier who recommending starting risperidone 0.5mg BID and titrating up as needed - UA negative for UTI - head CT negative - now improving and patient oriented x2 and denies further hallucinations, will continue risperidone at current dose [place] at home - will order PT/OT for tomorrow Urinary retention - she was retaining, now with Watt HTN - holding ARB, HCTZ and Norvasc - continue hydralazine COPD - Jeff Willoughby, prn albuterol DVT prophylaxis - SCDs Patient is DNR/DNI Dispo: Pending further improvement in mentation, and PT/OT evals.
[2023-10-27] MEDS: cefTRIAXone 1,000 MG in SODIUM CHLORIDE 0.9% 100 ML 200 MG IV (17:51)
[2023-10-28] VITALS (7 sets, daily range): BP systolic 108–152; BP diastolic 49–72; PULSE 76–85; RESP 14–18; TEMP 35.9–37.1; O2SAT 96
[2023-10-28 06:27] LABS: Add Manual Diff / Slide Review NO; Basophils Absolute Auto 0 /uL (0-100); Basophils Percent Auto 0.2 % (0-2); Eosinophils Absolute Auto 300 /uL (0-450); Eosinophils Percent Auto 3.2 % (2-4); Hematocrit 37.5 % (36-46); Lymphocytes Absolute Auto 500 /uL (1100-4500); Lymphocytes Percent Auto 6.3 % (25-40); Mean Corpuscular HGB Conc 34.7 % (30-36); Mean Corpuscular Hemoglobin 31.5 PG (26-34); Mean Corpuscular Volume 90.9 fL (80-100); Monocytes Absolute Auto 900 /uL (0-900); Monocytes Percent Auto 10.4 % (3-14); Neutrophils Absolute Auto 6500 /uL (1500-7000); Neutrophils Percent Auto 79.9 % (50-75); Platelet Count 204 X10^3/uL (150-400); Red Blood Cell Count 4.13 X10^6/uL (4.0-5.2); Red Cell Distribution Width 14.2 % (11.6-14.8); White Blood Cell Count 8.2 X10^3/uL (4.5-11.0)
[2023-10-28 06:37] LABS: BUN Creatinine Ratio 32.1 (6-22); Blood Urea Nitrogen 17 mg/dL (7-17); Calcium 8.6 mg/dL (8.4-10.2); Carbon Dioxide 28 mmol/L (22-32); Chloride 107 mmol/L (98-107); Estimated Glomerular Filt Rate > 60 mL/min (>60); Glucose 109 mg/dL (80-110); HEMOLYSIS < 15 (0-50); Potassium 3.6 mmol/L (3.4-5.1); Sodium 137 mmol/L (137-145)
[2023-10-28] MEDS: risperiDONE 0.25 MG TABLET 0.5 MG PO ×2 (09:57→20:49)
[2023-10-28] MEDS: HYDRALAZINE 25 MG TABLET PO (09:58)
[2023-10-28] MEDS: SENNOSIDES 8.6 MG TABLET PO (09:58)
--- NOTE | 2023-10-28 11:01 | PT.IIE ---
Current Diagnoses Metabolic encephalopathy (10/25/23) Essential (primary) hypertension (10/25/23) Urinary tract infection, site not specified (10/25/23) Other symptoms and signs involving cognitive functions and awareness (10/25/23) Medical History (Last Updated 10/26/23 @ 06:49 by Akhil Kang MD) Cognitive deficits HTN (hypertension) Physical Therapy Inpatient Evaluation/Re-Eval M1 PT/OT-IP Prior Functional Status Start: 10/28/23 09:34 Freq: NEEDED Status: Active Protocol: Document 10/28/23 10:20 MB (Rec: 10/28/23 11:01 MB [id number]) Medical Review Prior Functional Status Medical History Reviewed Yes Communication Unsure baseline diet or communication Mobility and Gait Unclear, pt states that she used what sounds like a SBQC, unsure about ADLs and driving Activities of Daily Living and IADL's See above Social History Household Members none Living Arrangements House Number of Stairs To Enter/Railing? Pt is not clear about steps at home. It appears there may be one step to enter and no steps in the home. Home Equipment Front Wheel Walker,Four Wheel Walker,Quad Cane,Straight Cane Employment Status Retired Additional Social History Comment Pt cannot clearly answer other home environment questions. She had a lifeline but did not like to use it and she thinks her daughter, Adelina, took it. Pt does not know where she lives but when offered [employer] by PT, she states she lives there and her daughter may be in [place] and works . M2 PT-IP Current Condition Start: 10/28/23 09:34 Freq: NEEDED Status: Active Protocol: Document 10/28/23 10:20 MB (Rec: 10/28/23 11:01 MB [id number]) Physical Therapy Current Condition Current Condition Evaluation Date 10/28/23 Treatment Diagnosis GLF, confusion M3 PT-IP Subjective Start: 10/28/23 09:34 Freq: NEEDED Status: Active Protocol: Document 10/28/23 10:20 MB (Rec: 10/28/23 11:01 MB [id number]) Subjective Physical Therapy Visit Type Type Initial Evaluation Visit Start Time 10:20 Visit Stop Time 10:50 Number of ONCOLOGY RADIATION PHYSICIAN Visits 0 Physical Therapy Visit Comments Patient Comments When PT asks some questions, pt pleasantly states, I don't believe I can answer that. M4 PT-IP Mobility and Gait Start: 10/28/23 09:34 Freq: NEEDED Status: Active Protocol: Document 10/28/23 10:20 MB (Rec: 10/28/23 11:01 MB [id number]) PT-Bed Mobility Assessment Supine to Sit Supine to Sit Standby Assistance,Head of Bed Elevated,Bedrails Scooting Scooting to Edge of Bed Standby Assistance Scooting Up and Down in Bed Standby Assistance PT-Transfer Assessment Sit to and From Stand Sit to and from Stand Contact Guard Assistance,1 Person Assistance,Use of Upper Extremities Equipment Transfer Assistive Device Gait Belt,Front Wheeled Walker Orthotic/Prosthetic Devices or Brace: No Transfers Transfer Destination Chair Transfer Technique Stepping Transfer Ability Level of Assist Minimal Assistance,1 Person Assistance,Use of Upper Extremities Comments Mobility Comments Pt tends to run into chair twice with RW. She has forward , flexed posture and reports dizziness/light-headedness once up many minutes and standing at RW. BP and HR in RUE sitting is 141/70, 81; standing BP takes two times to read and is 128/54, 78 and after about 2' of standing, third reading is 108/60, 76 and pt reports symptoms and needs to sit down. Gait Assessment Gait Gait Assistance Required: Minimum Assistance Distance (Feet) 5 Able to Maintain Weight Bearing Status Yes During Gait Assistive Devices Assistive Device Gait Belt,Front Wheeled Walker Orthotic/Prosthetic Devices or Brace: No Gait Deviations General Gait Pattern Decreased Feet Clearance, Flexed Trunk Factors Limiting Gait Function Factors Limiting Gait Function Difficulty Following Directions,Limited Range of Motion,Pain,Poor Balance,Poor Safety Awareness PT-Balance Assessment Sitting Balance and Reactions Static Sitting Balance Ability Good Dynamic Sitting Balance Ability Good Standing Balance and Reactions Static Standing Balance Ability Fair Dynamic Standing Balance Ability Fair Device Used RW M5 PT-IP Objective Assessments Start: 10/28/23 09:34 Freq: NEEDED Status: Active Protocol: Document 10/28/23 10:20 MB (Rec: 10/28/23 11:01 MB [id number]) Orientation Orientation/Cognition Level of Alertness Confusional State Orientation Name,Age,Birthday,Month,Date, Year Language Function Ability No Deficits Noted Safety Awareness Decreased Safety Awareness Memory Description 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,[employer] Impaired Gross Range of Motion Upper Extremity ROM Assessment Within Functional Limits Lower Extremity ROM Assessment Within Functional Limits Strength Upper Extremity Strength Assessment Within Functional Limits Lower Extremity Strength Assessment Within Functional Limits Comments Strength Comments Scab over left knee, some areas of ecchymosis M6 PT-IP Treatment Start: 10/28/23 09:34 Freq: NEEDED Status: Active Protocol: Document 10/28/23 10:20 MB (Rec: 10/28/23 11:01 MB [id number]) Physical Therapy Treatment Education Education Provided Safety Other Treatments Other Treatment Performed Orthostatic assessment after gait today given symptoms when up, several transfers M7 PT-IP Assessment and Plan Start: 10/28/23 09:34 Freq: NEEDED Status: Active Protocol: Document 10/28/23 10:20 MB (Rec: 10/28/23 11:01 MB [id number]) PT Summary Assessment and Plan Potential Rehabilitation Potential Good Status of Condition at Evaluation Evolving Summary Impairments Balance,Cognition,Bed Mobility ,Transfers,Gait,Activity Tolerance Progress Towards Goals Slow Progress due to Activity Tolerance Assessment Summary Pt is a pleasant 83 y/o female found down at home after GLF. She has scab over left knee and some bruises and diagnostics are negative. Pt presents with confusion this date and she has trouble answer PLOF and home set-up questions. She becomes light- headed once up on feet several minutes and she has positive orthostatic hypotension when BP and HR checked in sitting and then in standing and she is symptomatic. Pt con't to be at high fall risk given confusion and orthostasis. She is not currently safe to d/c home alone. Goals Bed Mobility Goal Independent Transfer Goal Independent,Cane,Front Wheeled Walker Gait Goal Independent,Cane,Front Wheel Walker Gait Distance 100 Other Goals Pt will ascend and descend at least one step with LRAD and no more than CGA to allow safe home entrance. Days to Meet Goals 5 Frequency of Treatment Frequency Of Treatment Once a Day Treatment Plan Physical Therapy Treatment Plan Bed Mobility Training,Transfer Training,Gait Training, Therapeutic Exercise,Balance Retraining,Discharge Planning, Hot or Cold Pack,Neuromuscular Re-ed,Coordination Retraining ,Manual Therapy Weight Bearing Status Weight Bearing Status Weight Bear as Tolerated Recommendations To Nursing Amount of Assist Needed 1 Person Assist Discharge Recommendations PT Discharge Recommendations SNF Rehab Transportation Needs at Discharge Private Vehicle
--- NOTE | 2023-10-28 12:14 | PM.PN.1 ---
Subjective Subjective Date Patient Seen: 10/28/23 Time Patient Seen: 11:40 Interval history: The patient reports she is feeling better. Her daughter also states that she seems to be doing better with fewer hallucinations on risperidone. She is noted to be orthostatic by Physical therapy, as well as weak and unsteady. Exam Vital Signs (past 8 hours): - 10/28/23 05:54 10/28/23 09:58 10/28/23 11:31 Temperature 96.7 F L 98.2 F Pulse Rate 85 85 Respiratory Rate 17 14 Blood Pressure 152/61 H 152/61 H 126/60 Pulse Oximetry 96 96 Oxygen Flow Rate 0 Oxygen Delivery Method Room Air Oxygen Flow Rate 0 Narrative Exam Narrative: GENERAL: This is a well-nourished, well-developed patient, in no apparent distress. HEAD: Atraumatic. Normocephalic. No temporal or scalp tenderness. EYES: Pupils equal round and reactive. Extraocular motions intact. No scleral icterus. No injection or drainage. ENT: Mucous membranes pink and moist. NECK: Trachea midline. No JVD, bruits or lymphadenopathy. Supple, nontender, no meningeal signs. CARDIOVASCULAR: Regular rate and rhythm without murmurs, gallops, or rubs. RESPIRATORY: Clear to auscultation. GASTROINTESTINAL: Abdomen soft, non-tender, nondistended. EXTREMITIES: No clubbing, cyanosis, or edema. BACK: Nontender without deformity or crepitance. No flank tenderness. NEUROLOGIC: Alert, oriented, speech fluent, full upper and lower motor strength, no focal deficits evident. DERMATOLOGIC: No rashes or skin lesions. Objective Labs 10/28/23 06:15 10/28/23 06:15 Labs: Laboratory Results - last 24 hr 10/28/23 06:15 WBC 8.2 RBC 4.13 Hgb 13.0 Hct 37.5 MCV 90.9 MCH 31.5 MCHC 34.7 RDW 14.2 Plt Count 204 Neut % (Auto) 79.9 H Lymph % (Auto) 6.3 L [place] % (Auto) 10.4 Eos % (Auto) 3.2 Baso % (Auto) 0.2 Neut # (Auto) 6500 Lymph # (Auto) 500 L [place] # (Auto) 900 Eos # (Auto) 300 Baso # (Auto) 0 Sodium 137 Potassium 3.6 Chloride 107 Carbon Dioxide 28 BUN 17 Creatinine 0.53 Estimated GFR > 60 BUN/Creatinine Ratio 32.1 H Glucose 109 Calcium 8.6 PFSH Medical History (Updated 10/26/23 @ 06:49 by Akhil Kang MD) HTN (hypertension) Cognitive deficits Social History household members: none Smoking Status: Never smoker alcohol intake: former Assessment & Plan Assessment & Plan narrative: Acute hallucinations with 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 Nishant frazier who recommending starting risperidone 0.5mg BID and titrating up as needed - UA negative for UTI - head CT negative - now improving and patient oriented x2 and denies further hallucinations, will continue risperidone at current dose [place] at home -continue PT and OT, remaining unsteady Orthostatic hypotension - hold antihypertensives - start lower extremity compression stockings Urinary retention - she was retaining, resolved with Watt -discontinue Watt catheter today HTN - holding ARB, HCTZ and Norvasc - continue hydralazine COPD - Trellegy E., prn albuterol DVT prophylaxis - SCDs Patient is DNR/DNI Dispo: Pending further improvement in mentation, and PT/OT evals. Discussed with care team and daughter. She will require placement as she had previously been living independently. Quality MIPS - Admit I confirm the patient?s Advance Care Plan is present, Code status is documented, Surrogate decision maker is in patient?s record [If Yes, STOP here]: Yes MIPS - Meds 'Current medications' to include all prescriptions, [id number] products, herbals, cannabis/cannabidiol products, and vitamin/mineral/dietary (nutritional) supplements. I have utilized all available resources to obtain, update, or review the patient?s current medications. [If Yes, STOP here]: Yes PROFEE Charge codes Subsequent inpatient/observation care: 95684
[2023-10-28] MEDS: DOCUSATE 100 MG CAPSULE PO (12:38)
[2023-10-28] MEDS: SODIUM CHLORIDE 0.9% 1,000 ML 100 ML IV (15:46)
--- NOTE | 2023-10-28 15:50 | CM.DPNOTE ---
Addendum entered by SD Vail 10/28/23 16:57: From Lisa, concerns about pt's MH needs and group home plan. Their nursing team will review in morning. Hopeful for Katlyn/SABINA coordinator level 2 input. SABINO Original Note: DCP Note MEDICAL TRANSCRIPTION EDITOR reviewed EMR. Per nursing staff, pt clearing up much better today. Kind and pleasant with staff. No behavior concerns. Cognition clearing up today since admission. Per PT, rec SNF placement. No OT eval available at this time. MEDICAL TRANSCRIPTION EDITOR met with pt, Dtr Adelina ([phone]) and CHERISE Shell ([phone]) and had lengthy DCP conversation at bedside. Pt pleasant with this author and seemed overall agreeable to whatever DCP dtr/CHERISE would encourage for pt. Pt speech logical/following conversation. MEDICAL TRANSCRIPTION EDITOR reviewed current PT rec of SNF placement and potential barriers. Family/pt preference would be to get rehab prior to dc to either Dtr/CHERISE home or LTC/STEF. Dtr reports pt would want to get stronger before and back to normal self as much as can be accomplished. Preference is either [facility], [facility], or [facility]. MEDICAL TRANSCRIPTION EDITOR reviewed HH option. Hx of [facility]- dtr reports wasn't best option for pt due to [facility] sending male PT and pt preferring female staff. If HH referral needed, consider if pt/dtr preference would be to pursue a different agency. MEDICAL TRANSCRIPTION EDITOR reviewed LTC/RESIDENTIAL options. Dtr plans to inquire what kind of LTC benefit her secondary [employer] offers. Dtr expressed concerns with getting their house set up for pt to go there. MEDICAL TRANSCRIPTION EDITOR provided senior resources booklet for information on hiring PP CGs in their home vs RESIDENTIAL/memory care/LTC options. MEDICAL TRANSCRIPTION EDITOR provided contact info for a place for mom rep to assist in consultations for LTC placement. MEDICAL TRANSCRIPTION EDITOR spoke with Lisa at [facility]. Agreed to review. Acceptance pending. Per Dr. Morales, pt could be stable for dc early as tomorrow. Pt much improved since admission. PASRR needed, likely would need level 2? Plan: MEDICAL TRANSCRIPTION EDITOR unable to place additional [facility] referrals today due to triaging needs. PASRR needed. CM team will continue to follow closely to assist as able in coordination of DCP. SD Vail
[2023-10-29] MEDS: SODIUM CHLORIDE 0.9% 1,000 ML 125 ML IV (01:23)
[2023-10-29 02:21] VITALS: BP 159/72; PULSE 80; RESP 20; TEMP 36.7; O2SAT 95
[2023-10-29 06:13] LABS: Add Manual Diff / Slide Review NO; Basophils Absolute Auto 0 /uL (0-100); Basophils Percent Auto 0.3 % (0-2); Eosinophils Absolute Auto 300 /uL (0-450); Eosinophils Percent Auto 3.8 % (2-4); Hematocrit 38.3 % (36-46); Hemoglobin 13.2 g/dL (12.0-16.0); Lymphocytes Absolute Auto 600 /uL (1100-4500); Lymphocytes Percent Auto 7.6 % (25-40); Mean Corpuscular HGB Conc 34.5 % (30-36); Mean Corpuscular Hemoglobin 31.1 PG (26-34); Mean Corpuscular Volume 90.2 fL (80-100); Monocytes Absolute Auto 900 /uL (0-900); Monocytes Percent Auto 10.3 % (3-14); Neutrophils Absolute Auto 6600 /uL (1500-7000); Platelet Count 203 X10^3/uL (150-400); Red Blood Cell Count 4.24 X10^6/uL (4.0-5.2); Red Cell Distribution Width 14.1 % (11.6-14.8); White Blood Cell Count 8.5 X10^3/uL (4.5-11.0)
[2023-10-29 06:27] LABS: BUN Creatinine Ratio 24.4 (6-22); Blood Urea Nitrogen 11 mg/dL (7-17); Calcium 8.1 mg/dL (8.4-10.2); Carbon Dioxide 28 mmol/L (22-32); Chloride 108 mmol/L (98-107); Estimated Glomerular Filt Rate > 60 mL/min (>60); Glucose 110 mg/dL (80-110); HEMOLYSIS < 15 (0-50); Potassium 3.2 mmol/L (3.4-5.1); Sodium 139 mmol/L (137-145)
[2023-10-29 08:00] VITALS: BP 147/72; PULSE 16; RESP 16; TEMP 36.3; O2SAT 94
[2023-10-29] MEDS: POTASSIUM CHLORIDE 20 MEQ TAB 40 MEQ PO (08:28)
[2023-10-29] MEDS: risperiDONE 0.25 MG TABLET 0.5 MG PO ×2 (08:28→21:07)
[2023-10-29 09:00] VITALS: BP 119/75; BP 136/75; BP 152/70; PULSE 74; PULSE 77; PULSE 83
[2023-10-29] MEDS: BUDESONIDE 0.5 MG/2 ML NEB INH ×2 (09:06→20:46)
[2023-10-29 09:07] VITALS: PULSE 80; RESP 18; O2SAT 99
--- NOTE | 2023-10-29 11:26 | PT.IPTN ---
Current Diagnoses Metabolic encephalopathy (10/25/23) Essential (primary) hypertension (10/25/23) Urinary tract infection, site not specified (10/25/23) Other symptoms and signs involving cognitive functions and awareness (10/25/23) Physical Therapy Treatment Note M2 PT-IP Current Condition Start: 10/28/23 09:34 Freq: NEEDED Status: Active Protocol: Document 10/28/23 10:20 MB (Rec: 10/28/23 11:01 MB [id number]) Physical Therapy Current Condition Current Condition Evaluation Date 10/28/23 Treatment Diagnosis GLF, confusion M3 PT-IP Subjective Start: 10/28/23 09:34 Freq: NEEDED Status: Active Protocol: Document 10/29/23 10:40 MB (Rec: 10/29/23 11:26 MB [id number]) Subjective Physical Therapy Visit Type Type Treatment Note Visit Start Time 10:40 Visit Stop Time 11:10 Number of RESIDENTIAL SUPPORT WORKER Visits 0 Physical Therapy Visit Comments Patient Comments Pt is agreeable to PT. She states she got up 3 times last night to urinate. M4 PT-IP Mobility and Gait Start: 10/28/23 09:34 Freq: NEEDED Status: Active Protocol: Document 10/29/23 10:40 MB (Rec: 10/29/23 11:26 MB [id number]) PT-Transfer Assessment Sit to and From Stand Sit to and from Stand Contact Guard Assistance,1 Person Assistance,Use of Upper Extremities Transfers Transfer Destination Chair,Toilet Transfer Technique Stepping Transfer Ability Level of Assist Contact Guard Assistance,1 Person Assistance,Use of Upper Extremities Comments Mobility Comments Pt tends to plop down and she does not reach back for chair twice when PT cues her to do so. Cues for hand placement on rail beside toilet for STS from toilet. Pt requires rest break after static standing d/ t some light-headedness. BP and HR in LUE: reclined in chair 151/73, 76; standing 123 /69, 91; standing 1' 139/67, 90. Gait Assessment Gait Gait Assistance Required: Contact Guard Assist Distance (Feet) 20 Able to Maintain Weight Bearing Status Yes During Gait Assistive Devices Assistive Device Gait Belt,Front Wheeled Walker Orthotic/Prosthetic Devices or Brace: No Gait Deviations General Gait Pattern Decreased Feet Clearance, Flexed Trunk Factors Limiting Gait Function Factors Limiting Gait Function Poor Balance,Poor Safety Awareness Comments Gait Comments Pt gait trains 20'x2 and 10'x1 today with RW and PT manages IV pole. Pt provides cues for turning so that there is room for her in RW and IV pole in tight spaces, some light- headedness when up but this does not affect gait distance today and she gaits further PT-Balance Assessment Sitting Balance and Reactions Static Sitting Balance Ability Good Dynamic Sitting Balance Ability Good Standing Balance and Reactions Static Standing Balance Ability Fair Dynamic Standing Balance Ability Fair Device Used RW M5 PT-IP Objective Assessments Start: 10/28/23 09:34 Freq: NEEDED Status: Active Protocol: Document 10/28/23 10:20 MB (Rec: 10/28/23 11:01 MB [id number]) Orientation Orientation/Cognition Level of Alertness Confusional State Orientation Name,Age,Birthday,Month,Date, Year Language Function Ability No Deficits Noted Safety Awareness Decreased Safety Awareness Memory Description 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,Shelter Impaired Gross Range of Motion Upper Extremity ROM Assessment Within Functional Limits Lower Extremity ROM Assessment Within Functional Limits Strength Upper Extremity Strength Assessment Within Functional Limits Lower Extremity Strength Assessment Within Functional Limits Comments Strength Comments Scab over left knee, some areas of ecchymosis M6 PT-IP Treatment Start: 10/28/23 09:34 Freq: NEEDED Status: Active Protocol: Document 10/28/23 10:20 MB (Rec: 10/28/23 11:01 MB [id number]) Physical Therapy Treatment Education Education Provided Safety Other Treatments Other Treatment Performed Orthostatic assessment after gait today given symptoms when up, several transfers M7 PT-IP Assessment and Plan Start: 10/28/23 09:34 Freq: NEEDED Status: Active Protocol: Document 10/29/23 10:40 MB (Rec: 10/29/23 11:26 MB [id number]) PT Summary Assessment and Plan Potential Rehabilitation Potential Good Status of Condition at Evaluation Evolving Summary Impairments Balance,Cognition,Bed Mobility ,Transfers,Gait,Activity Tolerance Progress Towards Goals Slow Progress due to Activity Tolerance Assessment Summary Pt progresses with gait distance today. Her BP con't to drop and she requires short sitting rest break but it does not decrease her ability to gait and toilet today. Set- up assistance and cues for toileting today. Goals Bed Mobility Goal Independent Transfer Goal Independent,Cane,Front Wheeled Walker Gait Goal Independent,Cane,Front Wheel Walker Gait Distance 100 Other Goals Pt will ascend and descend at least one step with LRAD and no more than CGA to allow safe home entrance. Days to Meet Goals 5 Frequency of Treatment Frequency Of Treatment Once a Day Treatment Plan Physical Therapy Treatment Plan Bed Mobility Training,Transfer Training,Gait Training, Therapeutic Exercise,Balance Retraining,Discharge Planning, Hot or Cold Pack,Neuromuscular Re-ed,Coordination Retraining ,Manual Therapy Weight Bearing Status Weight Bearing Status Weight Bear as Tolerated Recommendations To Nursing Amount of Assist Needed 1 Person Assist Discharge Recommendations PT Discharge Recommendations SNF Rehab Transportation Needs at Discharge Private Vehicle
--- NOTE | 2023-10-29 12:03 | OT.IP.EVAL ---
Current Diagnoses Metabolic encephalopathy (10/25/23) Essential (primary) hypertension (10/25/23) Urinary tract infection, site not specified (10/25/23) Other symptoms and signs involving cognitive functions and awareness (10/25/23) Past Medical History (Last Updated 10/26/23 @ 06:49 by Akhil Kang MD) Cognitive deficits HTN (hypertension) Occupational Therapy Inpatient Evaluation/Re-Eval M1 PT/OT-IP Prior Functional Status Start: 10/28/23 09:34 Freq: NEEDED Status: Active Protocol: Document 10/29/23 12:05 CGR (Rec: 10/29/23 12:39 CGR [id number]) Medical Review Prior Functional Status Medical History Reviewed Yes Communication Pt is an effective verbal communicator Mobility and Gait Pt states that she typically uses a 4ww for her mobility at home. Activities of Daily Living and IADL's Pt was IND in all ADLs and functional mobility at baseline. 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 Social History Household Members none Living Arrangements House Number of Floors (Floors) One Floor Number of Stairs To Enter/Railing? Pt states 1 step into the home without railings from the garage. Home Environment Standard Height Toilet,Walk in Shower Home Equipment Front Wheel Walker,Four Wheel Walker,Quad Cane,Straight Cane ,Shower Seat with Backrest, Grab Bars In Shower Employment Status Retired Additional Social History Comment Pt appears more clear in todays session. Pt states she sleeps in a flat bed. M2 OT-IP Current Condition Start: 10/29/23 12:05 Freq: Status: Active Protocol: Document 10/29/23 12:05 CGR (Rec: 10/29/23 12:39 CGR [id number]) Occupational Therapy Current Condition Current Condition Evaluation Date 10/29/23 Treatment Diagnosis pt was found down, orthostatic Diagnosis Onset Date 10/25/23 M3 OT- IP Subjective and Pain Start: 10/29/23 12:05 Freq: Status: Active Protocol: Document 10/29/23 12:05 CGR (Rec: 10/29/23 12:39 CGR [id number]) OT- Subjective Occupational Therapy Visit Type Type Initial Evaluation Visit Start Time 11:34 Visit Stop Time 12:03 OT Pain Assessment Pain When Pain Assessed At Rest Pain Present Pain Present Denied Pain M4 OT- IP ADL's Start: 10/29/23 12:05 Freq: Status: Active Protocol: Document 10/29/23 12:05 CGR (Rec: 10/29/23 12:39 CGR [id number]) OT [id number] General Evaluation Self-Feeding Ability Independent Comments OT Self-Feeding Comments pt able to feed self soup OT ADL-Grooming General Evaluation Grooming Ability Standby Assistance Areas Needing Assistance Face Washing Comments OT Grooming Comments standing at sink OT ADL-Oral Care General Eval Oral Care Ability Standby Assistance Areas of Assistance Brushing Teeth,Retrieving/Set- Up of Items Comments Oral Care Comments standing at sink OT ADL-Dressing Comments OT Dressing Comments not performed OT ADL-Toileting General Evaluation Toileting Ability Contact Guard Assistance Areas Needing Assistance Manage Clothing Comments OT Toileting Comments pt urinated seated on toilet OT ADL-Bathing Comments OT Bathing Comments not performed M5 OT- IP IADL's Start: 10/29/23 12:05 Freq: Status: Active Protocol: Document 10/29/23 12:05 CGR (Rec: 10/29/23 12:39 CGR [id number]) OT-Instrumental Activities of Daily Living Deficits IADL Deficits Identified Deficits Home Safety Awareness Awareness of Need for Assistance at Home Decreased Awareness Ability to Problem Solve Emergency Unable to Problem Solve Situations Medication Management Medication Management Comments concerns regarding pt's ability to perform Money Management Money Management Comments concerns regarding pt's ability to perform Meal Preparation Meal Preparation Comments concerns regarding pt's ability to perform Home Sales Service Professional Home Sales Service Professional Comments concerns regarding pt's ability to perform Driving Driving Comments concerns regarding pt's ability to perform M6 OT- IP Functional Cognition Start: 10/29/23 12:05 Freq: Status: Active Protocol: Document 10/29/23 12:05 CGR (Rec: 10/29/23 12:39 CGR [id number]) Cognitive Factors Limiting Selfcare Function Cognitive Ability Level of Alertness Alert Patient Orientation Name,Age,Birthday,Month,Date, Year,Day of Week,Place, Situation Attention Span Ability Unable to Focus,Unable to Sustain Attention Ability to Follow Commands Able to Follow One Step Commands with Increased Time, Able to Follow One Step Commands with Repetition OT- Vision and Hearing OT- Hearing Assessment OT- Hearing Assessment WFL OT- Vision Assessment Visual Acuity Glasses All The Time,Glasses For Reading Visual Attentiveness WFL Occular Pursuits WFL Visual Convergence WFL M7 OT- IP Mobility and Balance Start: 10/29/23 12:05 Freq: Status: Active Protocol: Document 10/29/23 12:05 CGR (Rec: 10/29/23 12:39 CGR [id number]) OT-Transfer Assessment Sit to and From Stand Sit to and from Stand Contact Guard Assistance, Minimal Assistance Transfers Transfer Ability Contact Guard Assistance, Minimal Assistance Technique Transfer Destination Chair,Toilet Transfer Technique Stand Step Pivot Devices Transfer Assistive Devices Gait Belt,Front Wheeled Walker Comments Mobility Comments Pt ambulated to toilet then up to sink for ADLs. OT- Gait Assessment Gait Gait Assistance Required: Contact Guard Assist,Minimum Assistance Assistive Devices Assistive Device Gait Belt,Front Wheeled Walker Comments Gait Ability Comments mobility around the room OT- Balance Assessment Sitting Balance and Reactions Static Sitting Balance Ability Good Dynamic Sitting Balance Ability Good M8 OT- IP Objective Assessments Start: 10/29/23 12:05 Freq: Status: Active Protocol: Document 10/29/23 12:05 CGR (Rec: 10/29/23 12:39 CGR [id number]) OT Gross Range of Motion Upper Extremity Range of Motion Assessment Within Functional Limits OT Strength Upper Extremity Strength Assessment Within Functional Limits Comments Strength Comments grossly 4+/5 OT- Coordination Assessment Upper Extremity Finger to Nose Test Within Functional Limits Finger Tapping Test Within Functional Limits OT-Muscle Tone Assessment Muscle Tone WNL Yes OT Sensation Assessment Edema Edema Absent M9 OT- IP Assessment and Plan Start: 10/29/23 12:05 Freq: Status: Active Protocol: Document 10/29/23 12:05 CGR (Rec: 10/29/23 12:39 CGR [id number]) OT Summary Assessment and Plan Potential Rehabilitation Potential Good Analytic Complexity at Evaluation Moderate Summary OT Impairments Strength,Balance,Functional Cognition,Functional Mobility, Grooming,Dressing,Toileting, Bathing,Toilet Transfers, Shower Transfers,Activity Tolerance Progress Towards Goals Progressing Toward Goals Assessment Summary Pt presents as a moderate complexity evaluation s/p admit for being found down. Pt appears slightly confused but is able to answer questions and move around. Pt states that she is not at her baseline and would like to go to SNF prior to returning home . Given pt's current mobility, SNF would be a good plan for discharge. Recommend SNF upon discharge. Goals Self-Feeding Goal Independent Grooming Goal Independent Dressing Goal Independent Toileting Goal Independent Bathing Goal Independent Toilet Transfer Goal Independent Shower Transfer Goal Independent Days to Meet Goals 20 Frequency of Treatment Frequency Of Treatment Once a Day Treatment Plan OT Treatment Plan ADL Training,Functional Cognition Training,Functional Mobility,Patient/Family Education,Discharge Planning Other Treatment Recommendations and Next SLUMS Treatment Focus Discharge Recommendations OT Discharge Recommendations SNF Rehab Transportation Needs at Discharge Private Vehicle,Wheelchair/ Cabulance
[2023-10-29] MEDS: SODIUM CHLORIDE 0.9% 1,000 ML 100 ML IV (12:57)
--- NOTE | 2023-10-29 13:40 | PM.PN.1 ---
Subjective Subjective Interval history: Patient continues to progress and can have a full appropriate conversation. Still awaiting SNF insurance auth. She is ok continuing the risperidone as it has been helping. Exam Vital Signs (past 8 hours): - 10/29/23 08:00 10/29/23 09:00 10/29/23 09:07 Temperature 97.3 F L Pulse Rate 16 L 80 Pulse Rate [Orthostatic Lying] 77 Pulse Rate [Orthostatic Sitting] 83 Pulse Rate [Orthostatic Standing] 74 Respiratory Rate 16 18 Blood Pressure 147/72 H Blood Pressure [Orthostatic Lying] 152/70 H Blood Pressure [Orthostatic Sitting] 136/75 Blood Pressure [Orthostatic Standing] 119/75 Pulse Oximetry 94 99 Oxygen Delivery Method Room Air Oxygen Flow Rate 0 0 Fraction of Inspired Oxygen 21 Fraction of Inspired Oxygen 21 SaO2/FiO2 Ratio 471 Oxygen Delivery Method Room Air Oxygen Flow Rate 0 Narrative Exam Narrative: GENERAL: This is a well-nourished, well-developed patient, in no apparent distress. HEAD: Atraumatic. Normocephalic. No temporal or scalp tenderness. EYES: Pupils equal round and reactive. Extraocular motions intact. No scleral icterus. No injection or drainage. ENT: Mucous membranes pink and moist. NECK: Trachea midline. No JVD, bruits or lymphadenopathy. Supple, nontender, no meningeal signs. CARDIOVASCULAR: Regular rate and rhythm without murmurs, gallops, or rubs. RESPIRATORY: Clear to auscultation. GASTROINTESTINAL: Abdomen soft, non-tender, nondistended. EXTREMITIES: No clubbing, cyanosis, or edema. BACK: Nontender without deformity or crepitance. No flank tenderness. NEUROLOGIC: Alert, oriented, speech fluent, full upper and lower motor strength, no focal deficits evident. DERMATOLOGIC: No rashes or skin lesions. Objective Labs 10/29/23 05:45 10/29/23 05:45 Labs: Laboratory Results - last 24 hr 10/29/23 05:45 WBC 8.5 RBC 4.24 Hgb 13.2 Hct 38.3 MCV 90.2 MCH 31.1 MCHC 34.5 RDW 14.1 Plt Count 203 Neut % (Auto) 78.0 H Lymph % (Auto) 7.6 L [place] % (Auto) 10.3 Eos % (Auto) 3.8 Baso % (Auto) 0.3 Neut # (Auto) 6600 Lymph # (Auto) 600 L [place] # (Auto) 900 Eos # (Auto) 300 Baso # (Auto) 0 Sodium 139 Potassium 3.2 L Chloride 108 H Carbon Dioxide 28 BUN 11 Creatinine 0.45 L Estimated GFR > 60 BUN/Creatinine Ratio 24.4 H Glucose 110 Calcium 8.1 L PFSH Medical History (Updated 10/26/23 @ 06:49 by Akhil Kang MD) HTN (hypertension) Cognitive deficits Social History household members: none Smoking Status: Never smoker alcohol intake: former Assessment & Plan Assessment & Plan narrative: Acute hallucinations with 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 Dillard psych who recommending starting risperidone 0.5mg BID - UA negative for UTI - head CT negative - now improving and patient oriented x3 and denies further hallucinations, will continue risperidone at current dose - will need PCP to continue prescribing risperidone at discharge, Dr. Dillard does not think she needs to follow with psychiatry at this point [place] -PT/OT rec SNF Orthostatic hypotension - hold antihypertensives - start lower extremity compression stockings - IVF - qshift orthostatics Urinary retention - she was retaining, resolved with Watt - discontinue Watt catheter HTN - holding ARB, HCTZ and Norvasc - hold hydralazine due to orthostasis COPD - Jeff Willoughby, prn albuterol DVT prophylaxis - lovenox Patient is DNR/DNI Dispo: Pending SNF acceptance. She may require placement following SNF as she had previously been living independently. Daughter working on this.
[2023-10-29] MEDS: ENOXAPARIN 40 MG/0.4 ML SYRINGE SUBCUT (14:28)
--- NOTE | 2023-10-29 15:50 | CM.DPC ---
DCP SNF Planning: Per PT/OT, recommending SNF and pt was able to participate appropriately and only some slight dementia type confusion. Per RN, pt has not had any behaviors, delusions/hallucinations and follows directives and pleasant. No concerns noted. SW made referrals to [facility] and [facility] and [facility] states they are not contracted with pt's [employer] MCR Adv? Made referral to [facility] as well, reviewing. [facility] reviewing and their DNS and team confirming if they can accept pt and initiate auth. SW checked a couple times today and end of shift [facility]. [facility] completed but needs MD signature for [facility] and to be faxed to [facility] coordinator just for review. Plan: SW to follow closely in the AM to see if [facility] and initiate [employer] MCR Adv auth. Cecilio Cloud
[2023-10-29 16:00] VITALS: BP 134/74; PULSE 76; RESP 16; TEMP 36.2; O2SAT 96
[2023-10-29 20:52] VITALS: BP 141/66; PULSE 91; RESP 16; TEMP 36.6; O2SAT 97
[2023-10-30 03:00] VITALS: BP 153/73; PULSE 82; RESP 18; TEMP 36.1; O2SAT 93
[2023-10-30 06:34] LABS: Add Manual Diff / Slide Review NO; Basophils Absolute Auto 100 /uL (0-100); Basophils Percent Auto 1.1 % (0-2); Eosinophils Absolute Auto 400 /uL (0-450); Eosinophils Percent Auto 6.4 % (2-4); Hematocrit 34.7 % (36-46); Lymphocytes Absolute Auto 600 /uL (1100-4500); Lymphocytes Percent Auto 9.2 % (25-40); Mean Corpuscular HGB Conc 34.6 % (30-36); Mean Corpuscular Hemoglobin 30.9 PG (26-34); Mean Corpuscular Volume 89.4 fL (80-100); Monocytes Absolute Auto 600 /uL (0-900); Monocytes Percent Auto 8.9 % (3-14); Neutrophils Absolute Auto 5000 /uL (1500-7000); Neutrophils Percent Auto 74.4 % (50-75); Platelet Count 202 X10^3/uL (150-400); Red Blood Cell Count 3.88 X10^6/uL (4.0-5.2); Red Cell Distribution Width 14.4 % (11.6-14.8); White Blood Cell Count 6.8 X10^3/uL (4.5-11.0)
[2023-10-30 06:49] LABS: BUN Creatinine Ratio 23.4 (6-22); Blood Urea Nitrogen 11 mg/dL (7-17); Carbon Dioxide 27 mmol/L (22-32); Chloride 109 mmol/L (98-107); Estimated Glomerular Filt Rate > 60 mL/min (>60); Glucose 102 mg/dL (80-110); HEMOLYSIS < 15 (0-50); Potassium 3.1 mmol/L (3.4-5.1); Sodium 136 mmol/L (137-145)
--- NOTE | 2023-10-30 07:14 | PM.PN.1 ---
Subjective Subjective Interval history: She is sitting in a chair, doing well. She denies any pain or other problems. No shortness of breath. She has not confused, and denies hallucinations. She is oriented to person and place. Exam Vital Signs (past 8 hours): - 10/30/23 03:00 Temperature 97.0 F L Pulse Rate 82 Respiratory Rate 18 Blood Pressure 153/73 H Pulse Oximetry 93 Oxygen Flow Rate 0 Fraction of Inspired Oxygen 21 SaO2/FiO2 Ratio 471 Oxygen Delivery Method Room Air Oxygen Flow Rate 0 Narrative Exam Narrative: NAD, alert and oriented. Fluent speech. Lungs are clear, normal rate and effort. Heart is regular, no murmur gallop or rub. Abdomen is soft, non distended. Extremities are free of edema. Objective Labs 10/30/23 06:24 10/30/23 06:24 Labs: Laboratory Results - last 24 hr 10/30/23 06:24 WBC 6.8 RBC 3.88 L Hgb 12.0 Hct 34.7 L MCV 89.4 MCH 30.9 MCHC 34.6 RDW 14.4 Plt Count 202 Neut % (Auto) 74.4 Lymph % (Auto) 9.2 L [place] % (Auto) 8.9 Eos % (Auto) 6.4 H Baso % (Auto) 1.1 Neut # (Auto) 5000 Lymph # (Auto) 600 L [place] # (Auto) 600 Eos # (Auto) 400 Baso # (Auto) 100 Sodium 136 L Potassium 3.1 L Chloride 109 H Carbon Dioxide 27 BUN 11 Creatinine 0.47 L Estimated GFR > 60 BUN/Creatinine Ratio 23.4 H Glucose 102 Calcium 8.0 L [facility] Medical History HTN (hypertension) Cognitive deficits Social History household members: none Smoking Status: Never smoker alcohol intake: former Assessment & Plan Assessment & Plan narrative: Acute hallucinations with 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 - presenting after being found down at home, having paranoia, hallucinations and delusions - per daughter patient has h/o shizophrenia and was admitted to a mental hospital in the - spoke with Dr. Dillard psych who recommending starting risperidone 0.5mg BID - UA negative for UTI - head CT negative - now improving and patient oriented x3 and denies further hallucinations, will continue risperidone at current dose - will need PCP to continue prescribing risperidone at discharge, Dr. Dillard does not think she needs to follow with psychiatry at this point [place], present on admission and active. She is gait instability. -PT/OT rec SNF Orthostatic hypotension, present on admission and improving. - hold antihypertensives - start lower extremity compression stockings - IVF - qshift orthostatics Urinary retention, present on admission and improving. - she was retaining, resolved with Watt - discontinue Watt catheter HTN, present on admission and stable without medications. - holding ARB, HCTZ and Norvasc - hold hydralazine due to orthostasis COPD, present on admission and stable. - Jeff Willoughby, prn albuterol DVT prophylaxis - lovenox Patient is DNR/DNI Dispo: Pending SNF acceptance. She may require placement following SNF as she had previously been living independently. Daughter working on this.
[2023-10-30] MEDS: ENOXAPARIN 40 MG/0.4 ML SYRINGE SUBCUT (08:17)
[2023-10-30 08:18] VITALS: BP 148/61; PULSE 76; RESP 19; TEMP 36.4; O2SAT 96
[2023-10-30] MEDS: risperiDONE 0.25 MG TABLET 0.5 MG PO ×2 (08:18→22:07)
[2023-10-30] MEDS: POTASSIUM CHLORIDE 20 MEQ TAB 40 MEQ PO ×2 (08:19→12:28)
[2023-10-30] MEDS: SODIUM CHLORIDE 0.9% 1,000 ML 100 ML IV (08:52)
--- NOTE | 2023-10-30 09:40 | PT.IPTN ---
Current Diagnoses Metabolic encephalopathy (10/25/23) Essential (primary) hypertension (10/25/23) Urinary tract infection, site not specified (10/25/23) Other symptoms and signs involving cognitive functions and awareness (10/25/23) Physical Therapy Treatment Note M2 PT-IP Current Condition Start: 10/28/23 09:34 Freq: NEEDED Status: Active Protocol: Document 10/28/23 10:20 MB (Rec: 10/28/23 11:01 MB [id number]) Physical Therapy Current Condition Current Condition Evaluation Date 10/28/23 Treatment Diagnosis GLF, confusion M3 PT-IP Subjective Start: 10/28/23 09:34 Freq: NEEDED Status: Active Protocol: Document 10/30/23 09:40 AB (Rec: 10/30/23 12:08 AB [id number]) Subjective Physical Therapy Visit Type Type Treatment Note Visit Start Time 09:40 Visit Stop Time 10:10 Number of ADJUNCT ART HISTORY INSTRUCTOR Visits 0 Physical Therapy Visit Comments Patient Comments agreeable to do PT M4 PT-IP Mobility and Gait Start: 10/28/23 09:34 Freq: NEEDED Status: Active Protocol: Document 10/30/23 09:40 AB (Rec: 10/30/23 12:08 AB [id number]) PT-Bed Mobility Assessment Supine to Sit Supine to Sit Standby Assistance PT-Transfer Assessment Sit to and From Stand Sit to and from Stand Minimal Assistance,1 Person Assistance,Use of Upper Extremities Equipment Transfer Assistive Device Gait Belt,Front Wheeled Walker Orthotic/Prosthetic Devices or Brace: No Transfers Transfer Destination Chair Transfer Technique ambulated Transfer Ability Level of Assist Contact Guard Assistance, Minimal Assistance,1 Person Assistance,Use of Upper Extremities Comments Mobility Comments pt supine in bed and agreeable do to PT. completed supine to sit SBA. able to sit on EOB SBA. completed sit to stand min A and cues. ambulated in room using FWW ~ 40 ft CGA to min A and cues for safety. cued for upright posture and to slow down. increase unsteadiness midway with ambulation requiring min A and cues for safety. pt sat on chair. sit<>stand training. educated pt on sit to stand techniques. completed sit <> stand x 4 reps with initial min A but able to do CGA after 2 reps. pt agreed to sit up on the chair. positioned pt on the chair. call light and table placed within reach. chair alarm on. Gait Assessment Gait Gait Assistance Required: Contact Guard Assist,Minimum Assistance,1 Person Assist Distance (Feet) 40 Able to Maintain Weight Bearing Status Yes During Gait Assistive Devices Assistive Device Gait Belt,Front Wheeled Walker Orthotic/Prosthetic Devices or Brace: No Gait Deviations General Gait Pattern Antalgic,Decreased Stride Length,Decreased Feet Clearance,Flexed Trunk Factors Limiting Gait Function Factors Limiting Gait Function Decreased Activity Tolerance, Decreased Strength,Poor Balance,Poor Safety Awareness M5 PT-IP Objective Assessments Start: 10/28/23 09:34 Freq: NEEDED Status: Active Protocol: Document 10/28/23 10:20 MB (Rec: 10/28/23 11:01 MB [id number]) Orientation Orientation/Cognition Level of Alertness Confusional State Orientation Name,Age,Birthday,Month,Date, Year Language Function Ability No Deficits Noted Safety Awareness Decreased Safety Awareness Memory Description 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,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 Gross Range of Motion Upper Extremity ROM Assessment Within Functional Limits Lower Extremity ROM Assessment Within Functional Limits Strength Upper Extremity Strength Assessment Within Functional Limits Lower Extremity Strength Assessment Within Functional Limits Comments Strength Comments Scab over left knee, some areas of ecchymosis M6 PT-IP Treatment Start: 10/28/23 09:34 Freq: NEEDED Status: Active Protocol: Document 10/30/23 09:40 AB (Rec: 10/30/23 12:08 AB [id number]) Physical Therapy Treatment Education Education Provided Safety M7 PT-IP Assessment and Plan Start: 10/28/23 09:34 Freq: NEEDED Status: Active Protocol: Document 10/30/23 09:40 AB (Rec: 10/30/23 12:08 AB [id number]) PT Summary Assessment and Plan Potential Rehabilitation Potential Fair Summary Impairments Pain,ROM,Strength,Balance, Coordination,Sensation,Tone, Cognition,Bed Mobility, Transfers,Gait,Activity Tolerance Progress Towards Goals Slow Progress due to Activity Tolerance,Slow Progress - Other Assessment Summary pt requiring CGA to min A with transfers and ambulation using FWW and cues for safety but with decrease activity tolerance. pt lives alone but will require 24/7 assist at this time due to decrease activity tolerance and safety awareness. pt will benefit from SNF rehab to improve overall strength and functional independence. Goals Bed Mobility Goal Independent Transfer Goal Independent,Front Wheeled Walker,Four Wheeled Walker Gait Goal Independent,Front Wheel Walker ,Four Wheel Walker Gait Distance 100 Other Goals Pt will ascend and descend at least one step with LRAD and no more than CGA to allow safe home entrance. Days to Meet Goals 5 Frequency of Treatment Frequency Of Treatment Once a Day Treatment Plan Physical Therapy Treatment Plan Bed Mobility Training,Transfer Training,Gait Training, Therapeutic Exercise,Balance Retraining,Discharge Planning, Hot or Cold Pack,Neuromuscular Re-ed,Coordination Retraining ,Manual Therapy Recommendations To Nursing Amount of Assist Needed 1 Person Assist Discharge Recommendations PT Discharge Recommendations SNF Rehab Transportation Needs at Discharge Private Vehicle
[2023-10-30 10:46] VITALS: BP 125/58; BP 141/63; BP 153/67; PULSE 77; PULSE 78; PULSE 80
--- NOTE | 2023-10-30 11:13 | PC.NURSE ---
Pt is up in chair with sba from PT. Pt denies pain, nausea, or shortness of breath. Pt oriented x 3 but is forgetful at times. Does not try to get up. Eating well and very pleasant and self-aware.
--- NOTE | 2023-10-30 12:04 | OT.IP.TRT ---
Current Diagnoses Metabolic encephalopathy (10/25/23) Essential (primary) hypertension (10/25/23) Urinary tract infection, site not specified (10/25/23) Other symptoms and signs involving cognitive functions and awareness (10/25/23) Occupational Therapy Treatment Note M2 OT-IP Current Condition Start: 10/29/23 12:05 Freq: Status: Active Protocol: Document 10/29/23 12:05 CGR (Rec: 10/29/23 12:39 CGR [id number]) Occupational Therapy Current Condition Current Condition Evaluation Date 10/29/23 Treatment Diagnosis pt was found down, orthostatic Diagnosis Onset Date 10/25/23 M3 OT- IP Subjective and Pain Start: 10/29/23 12:05 Freq: Status: Active Protocol: Document 10/30/23 12:12 CCC (Rec: 10/30/23 12:31 [facility] [id number]) OT- Subjective Occupational Therapy Visit Type Type Treatment Note Visit Start Time 11:25 Visit Stop Time 12:04 Occupational Therapy Visit Comments Patient Comments Pt agreed to use the bathroom. Patient/Caregiver Goals To get better. OT Pain Assessment Pain When Pain Assessed At Rest Pain Present Pain Present Pain Reported M4 OT- IP ADL's Start: 10/29/23 12:05 Freq: Status: Active Protocol: Document 10/30/23 12:12 CCC (Rec: 10/30/23 12:31 [facility] [id number]) OT [id number] Comments OT Self-Feeding Comments Not at meal time. OT ADL-Grooming General Evaluation Grooming Ability Standby Assistance Areas Needing Assistance Retrieving/Set-up of Grooming Items Comments OT Grooming Comments VC to point out items in front of her. OT ADL-Oral Care General Eval Oral Care Ability Independent Comments Oral Care Comments Able to do while standing at the sink with FWW. OT ADL-Dressing General Eval Lower Body Dressing Ability Minimal Assistance Comments OT Dressing Comments BARTOLO to help thread her feet into the brief. OT ADL-Toileting General Evaluation Toileting Ability Minimal Assistance Areas Needing Assistance Manage Clothing Comments OT Toileting Comments Assist for brief management needs. OT ADL-Bathing Comments OT Bathing Comments Pt will definitely need to sit for showering and have assist . M5 OT- IP IADL's Start: 10/29/23 12:05 Freq: Status: Active Protocol: Document 10/29/23 12:05 CGR (Rec: 10/29/23 12:39 CGR [id number]) OT-Instrumental Activities of Daily Living Deficits IADL Deficits Identified Deficits Home Safety Awareness Awareness of Need for Assistance at Home Decreased Awareness Ability to Problem Solve Emergency Unable to Problem Solve Situations Medication Management Medication Management Comments concerns regarding pt's ability to perform Money Management Money Management Comments concerns regarding pt's ability to perform Meal Preparation Meal Preparation Comments concerns regarding pt's ability to perform Marketing Automation Specialist Marketing Automation Specialist Comments concerns regarding pt's ability to perform Driving Driving Comments concerns regarding pt's ability to perform M6 OT- IP Functional Cognition Start: 10/29/23 12:05 Freq: Status: Active Protocol: Document 10/30/23 12:12 [facility] (Rec: 10/30/23 12:31 [facility] [id number]) Cognitive Factors Limiting Selfcare Function Cognitive Ability Level of Alertness Alert,Confusional State Patient Orientation Name,Place,Situation Attention Span Ability Capable of Focused Attention, Unable to Sustain Attention Ability to Follow Commands Able to Follow One Step Commands with Increased Time, Able to Follow One Step Commands with Repetition Memory Description 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,Working Impaired Executive Function Ability Unable to Filter Distractions, Unable to Remember Details Cognitive Tests SLUMS Pt scored 19/30 which implies borderline dementia, however pt fall on her face per pt which may also be affecting her cognition. Pt able to states 9 animals in one minute, able to recall 2/5 objects after time passes, not able to draw the numbers on the clock accurately space of draw the hands of the clock after time given, pt able to answer 3/4 questions right after paragraph read. Cognitive Comments Cognitive Assessment Comments Pt at times needing cues to sequence through ADL needs and at time doing well. Pt scored 531 seconds on Mcgrew Making Part B which implies severe impairments for visual attention, speed of processing , mental flexibility, executive functioning, and task switching. Pt now realizing it would be best for her not to drive at this time . Pt also agreed that she is needing more assist but does not want to burden her family and stay with them. M7 OT- IP Mobility and Balance Start: 10/29/23 12:05 Freq: Status: Active Protocol: Document 10/30/23 12:12 [facility] (Rec: 10/30/23 12:31 [facility] [id number]) OT-Transfer Assessment Sit to and From Stand Sit to and from Stand Minimal Assistance Transfers Transfer Ability Contact Guard Assistance Technique Transfer Destination Bed,Chair Transfer Technique Stand Step Pivot Devices Transfer Assistive Devices Gait Belt,Front Wheeled Walker Comments Mobility Comments BARTOLO to stand and from close CGA to BARTOLO when use of the FWW. VC to roll the FWW versus pick it up. Assist to keep the FWW closer to her as well. OT- Balance Assessment Sitting Balance and Reactions Static Sitting Balance Ability Good Dynamic Sitting Balance Ability Fair Standing Balance and Reactions Static Standing Balance Ability Fair Dynamic Standing Balance Ability Fair M8 OT- IP Objective Assessments Start: 10/29/23 12:05 Freq: Status: Active Protocol: Document 10/29/23 12:05 CGR (Rec: 10/29/23 12:39 CGR [id number]) OT Gross Range of Motion Upper Extremity Range of Motion Assessment Within Functional Limits OT Strength Upper Extremity Strength Assessment Within Functional Limits Comments Strength Comments grossly 4+/5 OT- Coordination Assessment Upper Extremity Finger to Nose Test Within Functional Limits Finger Tapping Test Within Functional Limits OT-Muscle Tone Assessment Muscle Tone WNL Yes OT Sensation Assessment Edema Edema Absent M9 OT- IP Assessment and Plan Start: 10/29/23 12:05 Freq: Status: Active Protocol: Document 10/30/23 12:12 [facility] (Rec: 10/30/23 12:31 [facility] [id number]) OT Summary Assessment and Plan Potential Rehabilitation Potential Good Analytic Complexity at Evaluation Moderate Summary OT Impairments Strength,Balance,Functional Cognition,Functional Mobility, Grooming,Dressing,Toileting, Bathing,Toilet Transfers, Shower Transfers,Activity Tolerance Progress Towards Goals Slow Progress due to Medical Issues,Slow Progress due to Cognition Assessment Summary Pt scored 19/30 on the SLUMS which implies borderline dementia however pt may also be affected by her fall on her face. Pt however scored 531 seconds on Mcgrew making Part B which implies severe cognitive impairments. Pt will benefit from skilled rehab at this time and pending progress afterwards may need assist- . Pts states her family has been talking to her about living with them, however pt states does not want to burden them. Goals Self-Feeding Goal Independent Grooming Goal Independent Dressing Goal Independent Toileting Goal Independent Bathing Goal Independent Toilet Transfer Goal Independent Shower Transfer Goal Independent Days to Meet Goals 19 Frequency of Treatment Frequency Of Treatment Once a Day Treatment Plan OT Treatment Plan ADL Training,Functional Cognition Training,Functional Mobility,Patient/Family Education,Discharge Planning Discharge Recommendations OT Discharge Recommendations SNF Rehab Transportation Needs at Discharge Private Vehicle,Wheelchair/ Cabulance
--- NOTE | 2023-10-30 14:08 | CM.DPC ---
Addendum entered by SD Cloud 10/30/23 15:24: ADD: MICHELLE called Nhi to see if determination made yet if [facility] can accept pt and their team still reviewing. SW met bedside with pt, Dtr and CHERISE and RN and updated that [facility] still reviewing. Discussed d/c directly to [facility] would be one less transition for the patient and Dtr confirms that they plan to drop off deposit check with [facility] as they feel discharge directly to [facility] might be best discharge plan for patient and requesting HH referral to [facility] for additional assist at d/c. SW waiting for return call from [facility] to confirm when they have a room available and to have her send the move in pwk for MD to sign. SW made initial referral to [facility] to review to confirm they can accept for HH at [facility] and F2F completed but not sent yet. Return msg from Nhi at [facility] and they can accept pt at [facility] and will initiate [employer] auth to see if they will even auth her for SNF. Plan: SW to follow closely for likely plan of [facility] with [facility] if they have an opening right away vs d/c to [facility] if [employer] auths before moving into [facility]. BF Original Note: DCP SNF vs [facility] Cont: Per PT/OT, pt making progress and able to mobilize with less assist and could benefit from SNF vs [facility]. Per RN, pt mostly fearful and cautious and mostly SBA. SW spoke to [facility], remain full. Spoke to Poonam Werner and they are full for a few days and if no [employer] contracted facility can accept then she would be willing to call [employer] to see about auth. MICHELLE called [facility] admissions requesting they reconsider patient and RN willing to do RN to RN as pt has been pleasant, no high acuity needs, cooperative, no behaviors etc.. and [facility] states their DNS willing to talk to RN but no call from [facility] to [place] RN yet as of 1400. MICHELLE called [facility] and spoke to their network coordinator who confirms they received the referral but then discovered Nhi at [facility] still reviewing for [facility]. MICHELLE spoke to [facility] regarding referral and barriers and their DNS reviewing but [facility] concerned that pt ambulating too well with SBA that insurance might deny SNF auth. SW spoke to pt's Dtr Adelina and updated on above and the barriers to SNF. Dtr disappointed and agreeable with any SNF that can accept but aware that plan B would likely need to be discharge to Assisted Living with HH. Dtr confirms that she toured [facility] but had the sense that they do not provide significant assistance if needed in the future and so Dtr and her are touring [facility] and [facility] this morning as both facilities are close to their home. SW then met bedside this afternoon with Dtr, Dtr's , and pt and they confirm that they liked [facility] and feel it would be a good fit for the patient and are showing her pictures right now. Family preference remains SNF first and then move into Assisted Living but aware that SNF might not be an option. SW discussed the typical process of pt d/c directly into a new Assisted Living facility and Dtr waiting for confirmation if [facility] can accept or not and then will work with [facility] to set up admission to their facility in the next 1-2 days. SW called [facility] [phone] and left ms for Earnestine for coordination of admission orders/move in pwk and requested call back to reduce risk of avoidable day. Plan: SW to follow closely for determination if [facility] can accept and initiate [employer] auth but if they decline then plan of coordinating with [facility] on admission orders/pwk for pt d/c to Assisted Living with likely HH. Charlotte Decker, [place]
[2023-10-30 20:53] VITALS: BP 140/72; PULSE 66; RESP 16; TEMP 36.7; O2SAT 98
[2023-10-31 05:22] VITALS: BP 136/82; PULSE 74; RESP 17; TEMP 36.6; O2SAT 96
[2023-10-31 06:04] LABS: Add Manual Diff / Slide Review NO; Basophils Absolute Auto 100 /uL (0-100); Basophils Percent Auto 0.9 % (0-2); Eosinophils Absolute Auto 500 /uL (0-450); Eosinophils Percent Auto 6.4 % (2-4); Hemoglobin 11.9 g/dL (12.0-16.0); Lymphocytes Absolute Auto 800 /uL (1100-4500); Lymphocytes Percent Auto 11.9 % (25-40); Mean Corpuscular HGB Conc 34.9 % (30-36); Mean Corpuscular Hemoglobin 31.4 PG (26-34); Monocytes Absolute Auto 800 /uL (0-900); Monocytes Percent Auto 10.8 % (3-14); Neutrophils Absolute Auto 5000 /uL (1500-7000); Platelet Count 229 X10^3/uL (150-400); Red Blood Cell Count 3.78 X10^6/uL (4.0-5.2); Red Cell Distribution Width 14.3 % (11.6-14.8); White Blood Cell Count 7.1 X10^3/uL (4.5-11.0)
[2023-10-31 06:11] LABS: BUN Creatinine Ratio 21.7 (6-22); Blood Urea Nitrogen 13 mg/dL (7-17); Calcium 8.4 mg/dL (8.4-10.2); Carbon Dioxide 26 mmol/L (22-32); Chloride 110 mmol/L (98-107); Estimated Glomerular Filt Rate > 60 mL/min (>60); Glucose 101 mg/dL (80-110); HEMOLYSIS < 15 (0-50); Potassium 3.9 mmol/L (3.4-5.1); Sodium 138 mmol/L (137-145)
[2023-10-31] MEDS: risperiDONE 0.25 MG TABLET 0.5 MG PO ×2 (08:31→20:24)
[2023-10-31] MEDS: ENOXAPARIN 40 MG/0.4 ML SYRINGE SUBCUT (08:32)
--- NOTE | 2023-10-31 09:08 | PM.PN.1 ---
Subjective Subjective Interval history: No complaints today. Denies hallucinations. Exam Vital Signs (past 8 hours): - 10/31/23 05:22 Temperature 97.8 F Pulse Rate 74 Respiratory Rate 17 Blood Pressure 136/82 Pulse Oximetry 96 Oxygen Flow Rate 0 Fraction of Inspired Oxygen 21 SaO2/FiO2 Ratio 471 Oxygen Delivery Method Room Air Oxygen Flow Rate 0 Narrative Exam Narrative: NAD, alert and oriented. Fluent speech. Lungs are clear, normal rate and effort. Heart is regular, no murmur gallop or rub. Abdomen is soft, non distended. Extremities are free of edema. Objective Labs 10/31/23 05:40 10/31/23 05:40 Labs: Laboratory Results - last 24 hr 10/31/23 05:40 WBC 7.1 RBC 3.78 L Hgb 11.9 L Hct 34.0 L MCV 90.0 MCH 31.4 MCHC 34.9 RDW 14.3 Plt Count 229 Neut % (Auto) 70.0 Lymph % (Auto) 11.9 L Dale % (Auto) 10.8 Eos % (Auto) 6.4 H Baso % (Auto) 0.9 Neut # (Auto) 5000 Lymph # (Auto) 800 L Dale # (Auto) 800 Eos # (Auto) 500 H Baso # (Auto) 100 Sodium 138 Potassium 3.9 Chloride 110 H Carbon Dioxide 26 BUN 13 Creatinine 0.60 Estimated GFR > 60 BUN/Creatinine Ratio 21.7 Glucose 101 Calcium 8.4 PFSH Medical History HTN (hypertension) Cognitive deficits Social History household members: none Smoking Status: Never smoker alcohol intake: former Assessment & Plan Assessment & Plan narrative: Acute hallucinations with 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 - presenting after being found down at home, having paranoia, hallucinations and delusions - per daughter patient has h/o shizophrenia and was [facility] a mental [facility] in [facility] - spoke with Dr. Nishant frazier who recommending starting risperidone 0.5mg BID [place] at home, present on admission and active. She is gait instability. -PT/OT rec SNF, she was improved. Now the plan is Assisted living. Orthostatic hypotension, present on admission and improving. - hold antihypertensives - start lower extremity compression stockings Urinary retention, present on admission and improving. - she was retaining, resolved with Watt - discontinue Watt catheter HTN, present on admission and stable without medications. - holding ARB, HCTZ and Norvasc - hold hydralazine due to orthostasis COPD, present on admission and stable. - Jeff Willoughby, prn albuterol PLAN: -discharge planning, family is working at assisted living transition to wear the heart [facility]. -continue current medications, monitor for low blood pressure or high blood pressure. Estimated date of discharge is October 30 or depending on Assisted living availability. [facility]
[2023-10-31 09:25] VITALS: BP 149/95; BP 160/73; BP 98/56; PULSE 79; PULSE 80; PULSE 96
[2023-10-31 09:53] VITALS: PULSE 78; RESP 18; O2SAT 97
[2023-10-31] MEDS: BUDESONIDE 0.5 MG/2 ML NEB INH (09:53)
--- NOTE | 2023-10-31 10:20 | PT.IPTN ---
Current Diagnoses Metabolic encephalopathy (10/25/23) Essential (primary) hypertension (10/25/23) Urinary tract infection, site not specified (10/25/23) Other symptoms and signs involving cognitive functions and awareness (10/25/23) Physical Therapy Treatment Note M2 PT-IP Current Condition Start: 10/28/23 09:34 Freq: NEEDED Status: Active Protocol: Document 10/28/23 10:20 MB (Rec: 10/28/23 11:01 MB [id number]) Physical Therapy Current Condition Current Condition Evaluation Date 10/28/23 Treatment Diagnosis GLF, confusion M3 PT-IP Subjective Start: 10/28/23 09:34 Freq: NEEDED Status: Active Protocol: Document 10/31/23 10:20 AB (Rec: 10/31/23 13:22 AB [id number]) Subjective Physical Therapy Visit Type Type Treatment Note Visit Start Time 10:20 Visit Stop Time 10:40 Number of SALES REPRESENTATIVE LE[employer]ER GOODS Visits 0 Physical Therapy Visit Comments Patient Comments agreeable to do PT M4 PT-IP Mobility and Gait Start: 10/28/23 09:34 Freq: NEEDED Status: Active Protocol: Document 10/31/23 10:20 AB (Rec: 10/31/23 13:22 AB [id number]) PT-Transfer Assessment Sit to and From Stand Sit to and from Stand Contact Guard Assistance, Minimal Assistance,1 Person Assistance,Use of Upper Extremities Equipment Transfer Assistive Device Gait Belt,Front Wheeled Walker ,4 Wheeled Walker Orthotic/Prosthetic Devices or Brace: No Comments Mobility Comments pt sitting on the chair and agreeable to do PT. pt stated that she uses a 4WW at home but also has a FWW. Assessed pt's ambulation using a 4WW. pt completed sit to stand from chair CGA to min A and max cues. pt ambulated using 4WW min A ~ 75 ft and max cues for maneuvering 4WW and brake management. pt with unsteady gait with 4WW and tends to run over things with 4WW. pt sat back on chair. educated pt regarding safety and use of a FWW at this time. Pt understood. pt ambulated using FWW in room ~ 40 ft CGA. pt sat back on chair. positioned pt on the chair. call light and table placed within reach. Gait Assessment Gait Gait Assistance Required: Contact Guard Assist,Minimum Assistance,1 Person Assist Distance (Feet) 75 Able to Maintain Weight Bearing Status Yes During Gait Assistive Devices Assistive Device Gait Belt,Front Wheeled Walker ,4 Wheeled Walker Orthotic/Prosthetic Devices or Brace: No Gait Deviations General Gait Pattern Antalgic,Decreased Stride Length,Decreased Feet Clearance Factors Limiting Gait Function Factors Limiting Gait Function Decreased Activity Tolerance, Decreased Strength,Difficulty Following Directions, Incoordination,Limited Range of Motion,Pain,Poor Balance, Poor Safety Awareness M5 PT-IP Objective Assessments Start: 10/28/23 09:34 Freq: NEEDED Status: Active Protocol: Document 10/28/23 10:20 MB (Rec: 10/28/23 11:01 MB [id number]) Orientation Orientation/Cognition Level of Alertness Confusional State Orientation Name,Age,Birthday,Month,Date, Year Language Function Ability No Deficits Noted Safety Awareness Decreased Safety Awareness Memory Description 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,Skilled Nursing Impaired Gross Range of Motion Upper Extremity ROM Assessment Within Functional Limits Lower Extremity ROM Assessment Within Functional Limits Strength Upper Extremity Strength Assessment Within Functional Limits Lower Extremity Strength Assessment Within Functional Limits Comments Strength Comments Scab over left knee, some areas of ecchymosis M6 PT-IP Treatment Start: 10/28/23 09:34 Freq: NEEDED Status: Active Protocol: Document 10/31/23 10:20 AB (Rec: 10/31/23 13:22 AB [id number]) Physical Therapy Treatment Education Education Provided Safety M7 PT-IP Assessment and Plan Start: 10/28/23 09:34 Freq: NEEDED Status: Active Protocol: Document 10/31/23 10:20 AB (Rec: 10/31/23 13:22 AB [id number]) PT Summary Assessment and Plan Potential Rehabilitation Potential Fair Summary Impairments Pain,ROM,Strength,Balance, Coordination,Sensation,Tone, Cognition,Bed Mobility, Transfers,Gait,Activity Tolerance Progress Towards Goals Slow Progress due to Activity Tolerance,Slow Progress - Other Assessment Summary pt requiring min A with ambulation using a 4WW and max cues. Able to ambulate using FWW CGA and cues. recommending use of FWW at this time. pt continues to have memory/cognitive issues affecting safety awareness. pt will require 24/7 assist and will benefit from SNF rehab. will continue to assess progress. Goals Bed Mobility Goal Independent Transfer Goal Independent,Front Wheeled Walker,Four Wheeled Walker Gait Goal Independent,Front Wheel Walker ,Four Wheel Walker Gait Distance 100 Other Goals Pt will ascend and descend at least one step with LRAD and no more than CGA to allow safe home entrance. Days to Meet Goals 5 Frequency of Treatment Frequency Of Treatment Once a Day Treatment Plan Physical Therapy Treatment Plan Bed Mobility Training,Transfer Training,Gait Training, Therapeutic Exercise,Balance Retraining,Discharge Planning, Hot or Cold Pack,Neuromuscular Re-ed,Coordination Retraining ,Manual Therapy Recommendations To Nursing Amount of Assist Needed 1 Person Assist Discharge Recommendations PT Discharge Recommendations SNF Rehab Transportation Needs at Discharge Private Vehicle
--- NOTE | 2023-10-31 10:20 | DIET.CONS ---
Dietary Consultation Note Admission Date: 10/25/2023 18:25 Assessment: 83 y F admitted after being found down in her home. Nutrition screened for LOS. Met with pt at bedside. Reports a decrease in appetite around 6 months ago that resulted in weight loss and having to buy new pants. She is satisfied about the weight loss. Also mentions how she reduced amount of food kept in house. Declares herself a picky eater. Diet recall: B-regular fruit yogurt L- skips or crackers D-yogurt and ice cream, sometimes a hamburger instead Ht: 160.02 cm Wt: 71 kg BMI: 27.7 UBW: Pt reports being 109 kg in past years, no recent weight hx in chart Last BM: 10/28/23 (10/28/23 00:30) MNA: Benny Score: 22 Diet: 10/26/23 Breakfast General (Regular) Diet Diet Modifications: Nutrition Percent Meal Consumed 75% 10/31/23 10:07 Percent Meal Consumed 80 10/30/23 17:49 Percent Meal Consumed 100% 10/30/23 12:50 Percent Meal Consumed 100% 10/30/23 08:51 Percent Meal Consumed 50% 10/29/23 18:00 Labs: RBC 3.78 X10^6/uL (4.0-5.2) L 10/31/23 05:40 Hgb 11.9 g/dL (12.0-16.0) L 10/31/23 05:40 Hct 34.0 % (36-46) L 10/31/23 05:40 Creatinine 0.60 mg/dL (0.52-1.04) 10/31/23 05:40 Lactate 1.7 mmol/L (0.7-2.1) 10/25/23 15:26 NT-Pro-B Natriuret Pep 5780 pg/mL (<450) H 10/25/23 15:26 Nutrition Diagnosis: Inadequate protein intake r/t decreased ability to consume sufficient intake and nutrition r/t knowledge deficit aeb <75% protein intake for 5-6 months per diet recall Interventions: 1. Modified protein-energy intake - discussed protein sources and importance, encouraged protein source 3x/day EER: [id number] (22-25 kcals/kg per BMI, compared with MSJ x1.25) 70-75 g (1 g/kg ABW) Monitoring/Evaluations: f/u prn Electronically Signed by: Zoila Bach 10/31/23 10:20 Clinical Dietitian [address] [address]
--- NOTE | 2023-10-31 10:52 | CM.DPC ---
DCP Cont. Reviewed EMR and team rounds for pt's status updates. Per RN and Hospitalist, pt is cleared for d/c. Called [facility] to clarify if they confirmed a bed placement w/family yet, and to update them on pt's readiness for d/c. RATE SUPERVISOR shared that pt is not needing to go to SNF Rehab, and that she can d/c to [facility] anytime once they confirm acceptance. They state that they will need to come and do a bedside assessment first- she will call this RATE SUPERVISOR back with when they can do that. Will plan to call pt's dtr once we know the admission status of [facility].
[2023-10-31 19:00] VITALS: BP 115/64; BP 134/80; BP 149/63; PULSE 74; PULSE 78; PULSE 82
[2023-10-31 20:49] VITALS: BP 149/63; PULSE 82; RESP 17; TEMP 35.6; O2SAT 95
--- NOTE | 2023-11-01 07:29 | P.PN_ITS ---
Subjective Subjective Interval history: Exam Vital Signs (past 8 hours): Fraction of Inspired Oxygen 21 SaO2/FiO2 Ratio 471 Oxygen Delivery Method Room Air Oxygen Flow Rate 0 Narrative Exam Narrative: NAD, alert and oriented. Fluent speech. Lungs are clear, normal rate and effort. Heart is regular, no murmur gallop or rub. Abdomen is soft, non distended. Extremities are free of edema. Objective Labs 10/31/23 05:40 10/31/23 05:40 [facility] Medical History HTN (hypertension) Cognitive deficits Social History household members: none Smoking Status: Never smoker alcohol intake: former Assessment & Plan Assessment & Plan narrative: [address] [address] Progress Note Patient: Aislinn Higgins MR#: [id number] : 1940 Acct:[id number] Age/Sex: 83 / F Admit Date: 10/25/23 Provider: Jesus Kraus MD Subjective Subjective Interval history: No complaints today. Denies hallucinations. Exam Vital Signs (past 8 hours): - 10/30/2404:22 Temperature 97.8 F Pulse Rate 74 Respiratory Rate 17 Blood Pressure 136/82 Pulse Oximetry 96 Oxygen Flow Rate 0 Fraction of Inspired Oxygen 21 SaO2/FiO2 Ratio 471 Oxygen Delivery Method Room Air Oxygen Flow Rate 0 Narrative Exam Narrative: NAD, alert and oriented. Fluent speech. Lungs are clear, normal rate and effort. Heart is regular, no murmur gallop or rub. Abdomen is soft, non distended. Extremities are free of edema. Objective Labs 10/31/23 05:40 10/31/23 05:40 Labs: Laboratory Results - last 24 hr 10/31/23 05:40 WBC 7.1 RBC 3.78 L Hgb 11.9 L Hct 34.0 L MCV 90.0 MCH 31.4 MCHC 34.9 RDW 14.3 Plt Count 229 Neut % (Auto) 70.0 Lymph % (Auto) 11.9 L [place] % (Auto) 10.8 Eos % (Auto) 6.4 H Baso % (Auto) 0.9 Neut # (Auto) 5000 Lymph # (Auto) 800 L [place] # (Auto) 800 Eos # (Auto) 500 H Baso # (Auto) 100 Sodium 138 Potassium 3.9 Chloride 110 H Carbon Dioxide 26 BUN 13 Creatinine 0.60 Estimated GFR > 60 BUN/Creatinine Ratio 21.7 Glucose 101 Calcium 8.4 PFSH Medical History HTN (hypertension) Cognitive deficits Social History household members: none Smoking Status: Never smoker alcohol intake: former Assessment & Plan Assessment & Plan narrative: Acute hallucinations with 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 - presenting after being found down at home, having paranoia, hallucinations and delusions - per daughter patient has h/o shizophrenia and was [facility] a [facility] in the [facility] - spoke with Dr. Nishant frazier who recommending starting risperidone 0.5mg BID UTI, present on admission and active. -Ceftriaxone for 3 days. Falls at home and gait instability, present on admission and active. -PT/OT rec SNF, she was improved. Now the plan is Assisted living. Orthostatic hypotension, present on admission and improving. - hold antihypertensives - start lower extremity compression stockings Urinary retention, present on admission and improving. - she was retaining, resolved with Watt - discontinued Watt catheter HTN, present on admission and stable without medications. - holding ARB, HCTZ and Norvasc - hold hydralazine due to orthostasis COPD, present on admission and stable. - Jeff Willoughby, prn albuterol PLAN: -discharge planning, family is working at assisted living transition to [facility]. -continue current medications, monitor for low blood pressure or high blood pressure. Estimated date of discharge is depending on Assisted living availability. DVT prophylaxis - Lovenox
[2023-11-01] MEDS: risperiDONE 0.25 MG TABLET 0.5 MG PO ×2 (08:43→20:36)
[2023-11-01] MEDS: ENOXAPARIN 40 MG/0.4 ML SYRINGE SUBCUT (08:43)
--- NOTE | 2023-11-01 09:24 | CM.SWNOTE ---
Addendum entered by SD Rubio 11/01/23 12:18: DCP spoke with Lucia asset coordinator at [facility] ([phone]) and discussed scheduling a bedside assessment with [facility] RN. drainage design coordinator to send link to Zoom telehealth meeting room for pt to meet remotely, SMITHP provided her [facility] email address. Appliance Adjuster requested pt's clinicals to be sent via fax. DCP faxed pt's clinicals to [phone]. Plan: Waiting for scheduled Zoom assessment from [facility]. DCP will coordinate with nursing staff when time established. YOON Acuña Original Note: DCP Continued Reviewed EMR and discussed pt with DCP and staff attorney for pt status. It is reported that pt should be cleared for discharge to Assisted Living Facility ([facility] - [place], [place]) pending a bedside assessment by [facility] RN. DCP spoke with pt's RN and confirmed that [facility] didn't call for assessment yesterday and is anticipating a call or in-person assessment today. DCP called [facility] ([phone]) and inquired about scheduling bedside assessment. Earnestine, who has been following this admission, was not available at time of call. This DCP was directed to call back at [phone] to coordinate a bedside assessment. Plan: Discharge pending bedside assessment by accepting [facility]. CM Team following for coordination of discharge plan. YOON Acuña
--- NOTE | 2023-11-01 10:24 | P.PN_ITS ---
Subjective Subjective Interval history: She is doing well, other than some constipation. No pain or dyspnea. She is waiting for acceptance to a new assisted living facility. Her family is working on this. Exam Vital Signs (past 8 hours): Fraction of Inspired Oxygen 21 SaO2/FiO2 Ratio 471 Oxygen Delivery Method Room Air Oxygen Flow Rate 0 Narrative Exam Narrative: Sitting in a chair. NAD, alert and oriented. Fluent speech. Lungs are clear, normal rate and effort. Heart is regular, no murmur gallop or rub. Abdomen is soft, non distended. Extremities are free of edema. Objective Labs 10/31/23 05:40 10/31/23 05:40 [facility] Medical History HTN (hypertension) Cognitive deficits Social History household members: none Smoking Status: Never smoker alcohol intake: former Assessment & Plan Assessment & Plan narrative: 1. Schizophrenia with hallucinations, present on admission and improved with new medication. 2. Gait instability and falls, present on admission and improving. 3. Urinary retention, present on admission and resolved. 4. Orthostatic hypotension, present on admission and improved. Holding blood pressure medications. 5. Hypertension, present on admission stable without her medications. All of her home medications were held and she is now on a simple regimen of hydralazine t.i.d. which appears to be reasonable with her blood pressure and orthostasis. 6. COPD, present on admission and stable. PLAN: -add senna for bowels. -continue current medications without change. -awaiting logistics for discharge to assisted living, this is [facility] in [place]. Patient's family is working on this. This is a new transition for the patient. Estimated date of discharge is 10/31 or 517 depending on logistics. Patient was medically cleared and has no ongoing medical issues requiring assessment.
[2023-11-01 10:29] VITALS: PULSE 76; RESP 14; TEMP 36.9; O2SAT 96
--- NOTE | 2023-11-01 13:00 | PT.IPTN ---
Current Diagnoses Metabolic encephalopathy (10/25/23) Essential (primary) hypertension (10/25/23) Urinary tract infection, site not specified (10/25/23) Other symptoms and signs involving cognitive functions and awareness (10/25/23) Physical Therapy Treatment Note M2 PT-IP Current Condition Start: 10/28/23 09:34 Freq: NEEDED Status: Active Protocol: Document 10/28/23 10:20 MB (Rec: 10/28/23 11:01 MB [id number]) Physical Therapy Current Condition Current Condition Evaluation Date 10/28/23 Treatment Diagnosis GLF, confusion M3 PT-IP Subjective Start: 10/28/23 09:34 Freq: NEEDED Status: Active Protocol: Document 11/01/23 13:17 TS (Rec: 11/01/23 13:26 TS [id number]) Subjective Physical Therapy Visit Type Type Treatment Note Visit Start Time 13:00 Visit Stop Time 13:15 Number of HEAD PAPER TESTER Visits 1 Physical Therapy Visit Comments Patient Comments Pt found resting in bed, is agreeable to PT. M4 PT-IP Mobility and Gait Start: 10/28/23 09:34 Freq: NEEDED Status: Active Protocol: Document 11/01/23 13:17 TS (Rec: 11/01/23 13:26 TS [id number]) PT-Bed Mobility Assessment Supine to Sit Supine to Sit Standby Assistance Sit to Supine Sit to Supine Standby Assistance Scooting Scooting to Edge of Bed Standby Assistance PT-Transfer Assessment Sit to and From Stand Sit to and from Stand Standby Assistance Equipment Transfer Assistive Device Gait Belt,Front Wheeled Walker Orthotic/Prosthetic Devices or Brace: No Comments Mobility Comments Supine to sit SBA with HOB flat. STS from bed SBA with FWW, pt required cues for pushing from the bed. She ambulated ~150'SBA with FWW, has flexed posture, no LOB. Sit to supine into bed SBA. Pt was left in bed, alarm on, all needs met. Gait Assessment Gait Gait Assistance Required: Standby Assistance Distance (Feet) 150 Able to Maintain Weight Bearing Status Yes During Gait Assistive Devices Assistive Device Gait Belt,Front Wheeled Walker Orthotic/Prosthetic Devices or Brace: No Gait Deviations General Gait Pattern Antalgic,Decreased Stride Length,Decreased Feet Clearance Factors Limiting Gait Function Factors Limiting Gait Function Decreased Activity Tolerance, Decreased Strength,Difficulty Following Directions, Incoordination,Limited Range of Motion,Pain,Poor Balance, Poor Safety Awareness PT-Balance Assessment Sitting Balance and Reactions Static Sitting Balance Ability Good Dynamic Sitting Balance Ability Fair Standing Balance and Reactions Static Standing Balance Ability Fair Dynamic Standing Balance Ability Fair Device Used RW M5 PT-IP Objective Assessments Start: 10/28/23 09:34 Freq: NEEDED Status: Active Protocol: Document 10/28/23 10:20 MB (Rec: 10/28/23 11:01 MB [id number]) Orientation Orientation/Cognition Level of Alertness Confusional State Orientation Name,Age,Birthday,Month,Date, Year Language Function Ability No Deficits Noted Safety Awareness Decreased Safety Awareness Memory Description 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,Bail Bondsman Impaired Gross Range of Motion Upper Extremity ROM Assessment Within Functional Limits Lower Extremity ROM Assessment Within Functional Limits Strength Upper Extremity Strength Assessment Within Functional Limits Lower Extremity Strength Assessment Within Functional Limits Comments Strength Comments Scab over left knee, some areas of ecchymosis M6 PT-IP Treatment Start: 10/28/23 09:34 Freq: NEEDED Status: Active Protocol: Document 11/01/23 13:17 TS (Rec: 11/01/23 13:26 TS [id number]) Physical Therapy Treatment Education Education Provided Safety M7 PT-IP Assessment and Plan Start: 10/28/23 09:34 Freq: NEEDED Status: Active Protocol: Document 11/01/23 13:17 TS (Rec: 11/01/23 13:26 TS [id number]) PT Summary Assessment and Plan Potential Rehabilitation Potential Fair Summary Impairments Pain,ROM,Strength,Balance, Coordination,Sensation,Tone, Cognition,Bed Mobility, Transfers,Gait,Activity Tolerance Progress Towards Goals Progressing Toward Goals Assessment Summary Aislinn is progressing well with her mobility. She is SBA for all bed mobility. She performed STS and gait of ~150 'SBA with FWW. PT is recommending Home with 08/01 assist. Goals Bed Mobility Goal Independent Transfer Goal Independent,Front Wheeled Walker,Four Wheeled Walker Gait Goal Independent,Front Wheel Walker ,Four Wheel Walker Gait Distance 100 Other Goals Pt will ascend and descend at least one step with LRAD and no more than CGA to allow safe home entrance. Days to Meet Goals 5 Frequency of Treatment Frequency Of Treatment Once a Day Treatment Plan Physical Therapy Treatment Plan Bed Mobility Training,Transfer Training,Gait Training, Therapeutic Exercise,Balance Retraining,Discharge Planning, Hot or Cold Pack,Neuromuscular Re-ed,Coordination Retraining ,Manual Therapy Recommendations To Nursing Amount of Assist Needed Standby Assistance Discharge Recommendations PT Discharge Recommendations Home with 08/01 Assist Available,Home Health Transportation Needs at Discharge Private Vehicle
[2023-11-01 20:00] VITALS: BP 128/74; PULSE 80; RESP 16; TEMP 36.4; O2SAT 96
[2023-11-02 08:00] VITALS: BP 142/68; PULSE 83; RESP 16; TEMP 36.6; O2SAT 97
[2023-11-02] MEDS: ENOXAPARIN 40 MG/0.4 ML SYRINGE SUBCUT (09:25)
[2023-11-02] MEDS: risperiDONE 0.25 MG TABLET 0.5 MG PO ×2 (09:26→20:57)
[2023-11-02] MEDS: BUDESONIDE 0.5 MG/2 ML NEB INH ×2 (09:57→20:13)
--- NOTE | 2023-11-02 11:43 | CM.DPC ---
DCP Cont. Reviewed EMR and team rounds for status updates. Called [facility] early this morning, they felt at that time that they could probably take pt today once they have clearance from her PCP and a signed lease by the dtr. Received a call 3-hours later that they said that they had too much going on today, and it will have to be Sunday, despite having known that the family had been working hard to get her placed there today. They do not take admissions over the weekend. Called pt's dtr, Adelina, and updated her, she expressed feeling understandably frustrated and angry that pt will need to remain in the hospital over the weekend, and they can't take her to their house due to several steps to their home entrance. Adelina was going to call them herself and then call this DIRECTOR FINANCIAL ANALYSIS back with an update.
--- NOTE | 2023-11-02 12:46 | OT.IP.TRT ---
Current Diagnoses Metabolic encephalopathy (10/25/23) Essential (primary) hypertension (10/25/23) Urinary tract infection, site not specified (10/25/23) Other symptoms and signs involving cognitive functions and awareness (10/25/23) Occupational Therapy Treatment Note M2 OT-IP Current Condition Start: 10/29/23 12:05 Freq: Status: Active Protocol: Document 10/29/23 12:05 CGR (Rec: 10/29/23 12:39 CGR [id number]) Occupational Therapy Current Condition Current Condition Evaluation Date 10/29/23 Treatment Diagnosis pt was found down, orthostatic Diagnosis Onset Date 10/25/23 M3 OT- IP Subjective and Pain Start: 10/29/23 12:05 Freq: Status: Active Protocol: Document 11/02/23 12:43 [facility] (Rec: 11/02/23 12:51 [facility] [id number]) OT- Subjective Occupational Therapy Visit Type Type Treatment Note Visit Start Time 12:25 Visit Stop Time 12:41 Occupational Therapy Visit Comments Patient Comments Pt wanting to use the bathroom . Patient/Caregiver Goals To get better. OT Pain Assessment Pain When Pain Assessed At Rest Pain Present Pain Present Denied Pain M4 OT- IP ADL's Start: 10/29/23 12:05 Freq: Status: Active Protocol: Document 11/02/23 12:43 [facility] (Rec: 11/02/23 12:51 [facility] [id number]) OT [id number] Comments OT Self-Feeding Comments set-up OT ADL-Grooming Comments OT Grooming Comments Pt able to wash her hands while at the sink. OT ADL-Oral Care Comments Oral Care Comments Not performed. OT ADL-Dressing General Eval Lower Body Dressing Ability Minimal Assistance Comments OT Dressing Comments Assist to get the brief over her feet. OT ADL-Toileting General Evaluation Toileting Ability Moderate Assistance Areas Needing Assistance Empty Catheter or Colostomy, Perform Perineal Hygiene Comments OT Toileting Comments Assist for brief and completeness to wipe. M5 OT- IP IADL's Start: 10/29/23 12:05 Freq: Status: Active Protocol: Document 10/29/23 12:05 CGR (Rec: 10/29/23 12:39 CGR [id number]) OT-Instrumental Activities of Daily Living Deficits IADL Deficits Identified Deficits Home Safety Awareness Awareness of Need for Assistance at Home Decreased Awareness Ability to Problem Solve Emergency Unable to Problem Solve Situations Medication Management Medication Management Comments concerns regarding pt's ability to perform Money Management Money Management Comments concerns regarding pt's ability to perform Meal Preparation Meal Preparation Comments concerns regarding pt's ability to perform Hall Supervisor Hall Supervisor Comments concerns regarding pt's ability to perform Driving Driving Comments concerns regarding pt's ability to perform M6 OT- IP Functional Cognition Start: 10/29/23 12:05 Freq: Status: Active Protocol: Document 11/02/23 12:43 [facility] (Rec: 11/02/23 12:51 [facility] [id number]) Cognitive Factors Limiting Selfcare Function Cognitive Ability Level of Alertness Alert Patient Orientation Name,Place,Situation Attention Span Ability Capable of Focused Attention, Capable of Sustained Attention Ability to Follow Commands Able to Follow One Step Commands with Increased Time, Able to Follow One Step Commands with Repetition Memory Description 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 Cognitive Comments Cognitive Assessment Comments Pt needing more safety cues today. Pt will need assist at this time due to decreased safety awareness during ADL and mobility needs. M7 OT- IP Mobility and Balance Start: 10/29/23 12:05 Freq: Status: Active Protocol: Document 11/02/23 12:43 [facility] (Rec: 11/02/23 12:51 [facility] [id number]) OT-Transfer Assessment Sit to and From Stand Sit to and from Stand Minimal Assistance Transfers Transfer Ability Contact Guard Assistance Technique Transfer Destination Chair,Toilet Transfer Technique Stand Step Pivot Devices Transfer Assistive Devices Gait Belt,Front Wheeled Walker Comments Mobility Comments Pt still having difficulty to stand form lower surfaces. VC to use her arms to push up fom surfaces to stand. OT- Balance Assessment Sitting Balance and Reactions Static Sitting Balance Ability Good Dynamic Sitting Balance Ability Fair Standing Balance and Reactions Static Standing Balance Ability Fair Dynamic Standing Balance Ability Fair M8 OT- IP Objective Assessments Start: 10/29/23 12:05 Freq: Status: Active Protocol: Document 10/29/23 12:05 CGR (Rec: 10/29/23 12:39 CGR [id number]) OT Gross Range of Motion Upper Extremity Range of Motion Assessment Within Functional Limits OT Strength Upper Extremity Strength Assessment Within Functional Limits Comments Strength Comments grossly 4+/5 OT- Coordination Assessment Upper Extremity Finger to Nose Test Within Functional Limits Finger Tapping Test Within Functional Limits OT-Muscle Tone Assessment Muscle Tone WNL Yes OT Sensation Assessment Edema Edema Absent M9 OT- IP Assessment and Plan Start: 10/29/23 12:05 Freq: Status: Active Protocol: Document 11/02/23 12:43 [facility] (Rec: 11/02/23 12:51 [facility] [id number]) OT Summary Assessment and Plan Potential Rehabilitation Potential Good Analytic Complexity at Evaluation Moderate Summary OT Impairments Strength,Balance,Functional Cognition,Functional Mobility, Grooming,Dressing,Toileting, Bathing,Toilet Transfers, Shower Transfers,Activity Tolerance Progress Towards Goals Slow Progress due to Activity Tolerance,Slow Progress due to Cognition Assessment Summary Pt still needing one person assist BARTOLO to stand at times from lower surfaces to FWW. BARTOLO for completeness for hygiene and assist with her brief. At this time pt appears possibly new baseline and waiting to go to [facility]. Pt will need available assist and benefit from home health. Goals Self-Feeding Goal Independent Grooming Goal Independent Dressing Goal Minimal Assistance Toileting Goal Minimal Assistance Bathing Goal Minimal Assistance Toilet Transfer Goal Standby Assistance Shower Transfer Goal Contact Guard Assistance Days to Meet Goals 3 Frequency of Treatment Frequency Of Treatment Once a Day Treatment Plan OT Treatment Plan ADL Training,Functional Cognition Training,Functional Mobility,Patient/Family Education,Discharge Planning Discharge Recommendations Other Discharge Recommendations Assisted Living Transportation Needs at Discharge Private Vehicle,Wheelchair/ Cabulance
--- NOTE | 2023-11-02 14:12 | PT.IPTN ---
Current Diagnoses Metabolic encephalopathy (10/25/23) Essential (primary) hypertension (10/25/23) Urinary tract infection, site not specified (10/25/23) Other symptoms and signs involving cognitive functions and awareness (10/25/23) Physical Therapy Treatment Note M2 PT-IP Current Condition Start: 10/28/23 09:34 Freq: NEEDED Status: Active Protocol: Document 10/28/23 10:20 MB (Rec: 10/28/23 11:01 MB [id number]) Physical Therapy Current Condition Current Condition Evaluation Date 10/28/23 Treatment Diagnosis GLF, confusion M3 PT-IP Subjective Start: 10/28/23 09:34 Freq: NEEDED Status: Active Protocol: Document 11/02/23 14:43 TS (Rec: 11/02/23 14:47 TS [id number]) Subjective Physical Therapy Visit Type Type Treatment Note Visit Start Time 14:12 Visit Stop Time 14:30 Number of INFORMATION MANAGEMENT SPECIALIST Visits 2 Physical Therapy Visit Comments Patient Comments Pt found resting in chair, is agreeble to PT. M4 PT-IP Mobility and Gait Start: 10/28/23 09:34 Freq: NEEDED Status: Active Protocol: Document 11/02/23 14:43 TS (Rec: 11/02/23 14:47 TS [id number]) PT-Transfer Assessment Sit to and From Stand Sit to and from Stand Standby Assistance Equipment Transfer Assistive Device Gait Belt,Front Wheeled Walker Orthotic/Prosthetic Devices or Brace: No Comments Mobility Comments STS from chair SBA with FWW, pt has a slight posterior lean . She ambulated ~150'SBA with FWW, she had no buckling or LOB. Pt was left back in chair , all needs met. Gait Assessment Gait Gait Assistance Required: Standby Assistance Distance (Feet) 150 Able to Maintain Weight Bearing Status Yes During Gait Assistive Devices Assistive Device Gait Belt,Front Wheeled Walker Orthotic/Prosthetic Devices or Brace: No Gait Deviations General Gait Pattern Antalgic,Decreased Stride Length,Decreased Feet Clearance Factors Limiting Gait Function Factors Limiting Gait Function Decreased Activity Tolerance, Decreased Strength,Difficulty Following Directions, Incoordination,Limited Range of Motion,Pain,Poor Balance, Poor Safety Awareness PT-Balance Assessment Sitting Balance and Reactions Static Sitting Balance Ability Good Dynamic Sitting Balance Ability Fair Standing Balance and Reactions Static Standing Balance Ability Fair Dynamic Standing Balance Ability Fair Device Used RW M5 PT-IP Objective Assessments Start: 10/28/23 09:34 Freq: NEEDED Status: Active Protocol: Document 10/28/23 10:20 MB (Rec: 10/28/23 11:01 MB [id number]) Orientation Orientation/Cognition Level of Alertness Confusional State Orientation Name,Age,Birthday,Month,Date, Year Language Function Ability No Deficits Noted Safety Awareness Decreased Safety Awareness Memory Description 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,Skilled Nursing Impaired Gross Range of Motion Upper Extremity ROM Assessment Within Functional Limits Lower Extremity ROM Assessment Within Functional Limits Strength Upper Extremity Strength Assessment Within Functional Limits Lower Extremity Strength Assessment Within Functional Limits Comments Strength Comments Scab over left knee, some areas of ecchymosis M6 PT-IP Treatment Start: 10/28/23 09:34 Freq: NEEDED Status: Active Protocol: Document 11/02/23 14:43 TS (Rec: 11/02/23 14:47 TS [id number]) Physical Therapy Treatment Education Education Provided Safety M7 PT-IP Assessment and Plan Start: 10/28/23 09:34 Freq: NEEDED Status: Active Protocol: Document 11/02/23 14:43 TS (Rec: 11/02/23 14:47 TS [id number]) PT Summary Assessment and Plan Potential Rehabilitation Potential Fair Summary Impairments Pain,ROM,Strength,Balance, Coordination,Sensation,Tone, Cognition,Bed Mobility, Transfers,Gait,Activity Tolerance Progress Towards Goals Progressing Toward Goals Assessment Summary Aislinn continues to do well with her mobility. She is SBA for STS with FWW. She does have some balance issues with a posterior lean initially in standing. She continues to ambulate ~150'SBA with FWW. PT is recommending home with 24/ 7 assist. Goals Bed Mobility Goal Independent Transfer Goal Independent,Front Wheeled Walker,Four Wheeled Walker Gait Goal Independent,Front Wheel Walker ,Four Wheel Walker Gait Distance 100 Other Goals Pt will ascend and descend at least one step with LRAD and no more than CGA to allow safe home entrance. Days to Meet Goals 5 Frequency of Treatment Frequency Of Treatment Once a Day Treatment Plan Physical Therapy Treatment Plan Bed Mobility Training,Transfer Training,Gait Training, Therapeutic Exercise,Balance Retraining,Discharge Planning, Hot or Cold Pack,Neuromuscular Re-ed,Coordination Retraining ,Manual Therapy Recommendations To Nursing Amount of Assist Needed Standby Assistance Discharge Recommendations PT Discharge Recommendations Home with / Assist Available,Home Health Transportation Needs at Discharge Private Vehicle
--- NOTE | 2023-11-02 15:06 | PM.PN.1 ---
Subjective Subjective Interval history: She is doing well. No pain or dyspnea. She is waiting for acceptance to a new assisted living facility, per case management cannot accept until Sunday. Exam Vital Signs (past 8 hours): - 11/02/23 08:00 Temperature 97.8 F Pulse Rate 83 Respiratory Rate 16 Blood Pressure 142/68 H Pulse Oximetry 97 Fraction of Inspired Oxygen 21 SaO2/FiO2 Ratio 471 Oxygen Delivery Method Room Air Oxygen Flow Rate 0 Narrative Exam Narrative: Sitting in a chair. NAD, alert and oriented. Fluent speech. Lungs are clear, normal rate and effort. Heart is regular, no murmur gallop or rub. Abdomen is soft, non distended. Extremities are free of edema. Objective Labs 10/31/23 05:40 10/31/23 05:40 PFS Medical History HTN (hypertension) Cognitive deficits Social History household members: none Smoking Status: Never smoker alcohol intake: former Assessment & Plan Assessment & Plan narrative: 1. Schizophrenia with hallucinations, present on admission and improved with new medication. 2. Gait instability and falls, present on admission and improving. 3. Urinary retention, present on admission and resolved. 4. Orthostatic hypotension, present on admission and improved. Holding blood pressure medications. 5. Hypertension, present on admission stable without her medications. All of her home medications were held and she is now on a simple regimen of hydralazine t.i.d. which appears to be reasonable with her blood pressure and orthostasis. 6. COPD, present on admission and stable. PLAN: -continue current medications without change. -awaiting logistics for discharge to assisted living, currently unable to accept until Saturday 11/04. Estimated date of discharge is 11/04 Patient was medically cleared and has no ongoing medical issues requiring assessment.
--- NOTE | 2023-11-02 16:58 | PC.NURSE ---
Pt alert w/ some confusion. Denies any issues throughtout day. Sat in chair frequently. Pt will be here until Sunday when she will D/C to [facility]. Call light w/in reach, bed alarm on for pt safety. Continue w/plan of care.
[2023-11-02 20:00] VITALS: BP 142/60; PULSE 66; RESP 18; TEMP 35.7; O2SAT 95
[2023-11-03 07:30] VITALS: PULSE 78; RESP 16; O2SAT 95
[2023-11-03] MEDS: BUDESONIDE 0.5 MG/2 ML NEB INH ×2 (07:30→21:54)
[2023-11-03 08:00] VITALS: BP 164/68; PULSE 79; RESP 16; TEMP 36.3; O2SAT 94
[2023-11-03] MEDS: ENOXAPARIN 40 MG/0.4 ML SYRINGE SUBCUT (08:04)
[2023-11-03] MEDS: risperiDONE 0.25 MG TABLET 0.5 MG PO ×2 (08:04→21:31)
[2023-11-03 08:34] VITALS: RESP 18
--- NOTE | 2023-11-03 10:21 | CM.DPC ---
DCP Cont. Reviewed EMR and team rounds for status updates. No changes, cont. plan for d/c on Sunday to [facility].
--- NOTE | 2023-11-03 12:53 | PC.NURSE ---
Pt alert. denies discomfort. Sitting is chair most morning. SBA to BR No IV access. Call light w/in reach, chair alarm on for pt safety. Continue w/ plan of care.
--- NOTE | 2023-11-03 13:45 | PM.PN.1 ---
Subjective Subjective Interval history: She is doing well. No pain or dyspnea. She is waiting for acceptance to a new assisted living facility, per case management cannot accept until Sunday. Exam Vital Signs (past 8 hours): - 11/03/23 07:30 11/03/23 08:00 11/03/23 08:34 Temperature 97.4 F L Pulse Rate 78 79 Respiratory Rate 16 16 18 Blood Pressure 164/68 H Pulse Oximetry 95 94 Oxygen Delivery Method Room Air Oxygen Flow Rate 0 Fraction of Inspired Oxygen 21 Fraction of Inspired Oxygen 21 SaO2/FiO2 Ratio 452 Oxygen Delivery Method Room Air Oxygen Flow Rate 0 Narrative Exam Narrative: Sitting in a chair. NAD, alert and oriented. Fluent speech. Lungs are clear, normal rate and effort. Heart is regular, no murmur gallop or rub. Abdomen is soft, non distended. Extremities are free of edema. Objective Labs 10/31/23 05:40 10/31/23 05:40 [facility] Medical History HTN (hypertension) Cognitive deficits Social History household members: none Smoking Status: Never smoker alcohol intake: former Assessment & Plan Assessment & Plan narrative: 1. Schizophrenia with hallucinations, present on admission and improved with new medication. 2. Gait instability and falls, present on admission and improving. 3. Urinary retention, present on admission and resolved. 4. Orthostatic hypotension, present on admission and improved. Holding blood pressure medications. 5. Hypertension, present on admission stable without her medications. All of her home medications were held and she is now on a simple regimen of hydralazine t.i.d. which appears to be reasonable with her blood pressure and orthostasis. 6. COPD, present on admission and stable. PLAN: -continue current medications without change. -awaiting logistics for discharge to assisted living, currently unable to accept until Saturday 11/04. Estimated date of discharge is 11/04 Patient was medically cleared and has no ongoing medical issues requiring assessment.
--- NOTE | 2023-11-03 13:53 | PT.IPTN ---
Current Diagnoses Metabolic encephalopathy (10/25/23) Essential (primary) hypertension (10/25/23) Urinary tract infection, site not specified (10/25/23) Other symptoms and signs involving cognitive functions and awareness (10/25/23) Physical Therapy Treatment Note M2 PT-IP Current Condition Start: 10/28/23 09:34 Freq: NEEDED Status: Active Protocol: Document 10/28/23 10:20 MB (Rec: 10/28/23 11:01 MB [id number]) Physical Therapy Current Condition Current Condition Evaluation Date 10/28/23 Treatment Diagnosis GLF, confusion M3 PT-IP Subjective Start: 10/28/23 09:34 Freq: NEEDED Status: Active Protocol: Document 11/03/23 14:09 TS (Rec: 11/03/23 14:15 TS [id number]) Subjective Physical Therapy Visit Type Type Treatment Note Visit Start Time 13:53 Visit Stop Time 14:08 Number of ADMISSION NURSE COORDINATOR Visits 3 Physical Therapy Visit Comments Patient Comments Pt found resting in chair, she is pleasantly confused. Pt is agreeable to PT. M4 PT-IP Mobility and Gait Start: 10/28/23 09:34 Freq: NEEDED Status: Active Protocol: Document 11/03/23 14:09 TS (Rec: 11/03/23 14:15 TS [id number]) PT-Transfer Assessment Sit to and From Stand Sit to and from Stand Standby Assistance Equipment Transfer Assistive Device Gait Belt,Front Wheeled Walker Orthotic/Prosthetic Devices or Brace: No Comments Mobility Comments Pt performed STS SBA from chair with cues for pushing from arms of chair. She ambulated ~150' CGA with FWW, pt reports pain in R knee and requested back to room. Pt was left in chair, all needs met. Gait Assessment Gait Gait Assistance Required: Contact Guard Assist Distance (Feet) 150 Able to Maintain Weight Bearing Status Yes During Gait Assistive Devices Assistive Device Gait Belt,Front Wheeled Walker Orthotic/Prosthetic Devices or Brace: No Gait Deviations General Gait Pattern Antalgic,Decreased Stride Length,Decreased Feet Clearance Factors Limiting Gait Function Factors Limiting Gait Function Decreased Activity Tolerance, Decreased Strength,Difficulty Following Directions, Incoordination,Limited Range of Motion,Pain,Poor Balance, Poor Safety Awareness PT-Balance Assessment Sitting Balance and Reactions Static Sitting Balance Ability Good Dynamic Sitting Balance Ability Fair Standing Balance and Reactions Static Standing Balance Ability Fair Dynamic Standing Balance Ability Fair Device Used RW M5 PT-IP Objective Assessments Start: 10/28/23 09:34 Freq: NEEDED Status: Active Protocol: Document 10/28/23 10:20 MB (Rec: 10/28/23 11:01 MB [id number]) Orientation Orientation/Cognition Level of Alertness Confusional State Orientation Name,Age,Birthday,Month,Date, Year Language Function Ability No Deficits Noted Safety Awareness Decreased Safety Awareness Memory Description 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,Longterm Impaired Gross Range of Motion Upper Extremity ROM Assessment Within Functional Limits Lower Extremity ROM Assessment Within Functional Limits Strength Upper Extremity Strength Assessment Within Functional Limits Lower Extremity Strength Assessment Within Functional Limits Comments Strength Comments Scab over left knee, some areas of ecchymosis M6 PT-IP Treatment Start: 10/28/23 09:34 Freq: NEEDED Status: Active Protocol: Document 11/03/23 14:09 TS (Rec: 11/03/23 14:15 TS [id number]) Physical Therapy Treatment Education Education Provided Safety M7 PT-IP Assessment and Plan Start: 10/28/23 09:34 Freq: NEEDED Status: Active Protocol: Document 11/03/23 14:09 TS (Rec: 11/03/23 14:15 TS [id number]) PT Summary Assessment and Plan Potential Rehabilitation Potential Fair Summary Impairments Pain,ROM,Strength,Balance, Coordination,Sensation,Tone, Cognition,Bed Mobility, Transfers,Gait,Activity Tolerance Progress Towards Goals Progressing Toward Goals Assessment Summary Aislinn continues to do well with her mobility. She is SBA for STS with FWW and requires some cues for proper technique . She continues to ambulate ~ 150'CGA with FWW. She does lack good safety awareness, pt is confused at [facility]. She follows instructions well from therapist. PT is recommending home with 08/01 and HHPT. Pt is to go to [facility] soon. Goals Bed Mobility Goal Independent Transfer Goal Independent,Front Wheeled Walker,Four Wheeled Walker Gait Goal Independent,Front Wheel Walker ,Four Wheel Walker Gait Distance 100 Other Goals Pt will ascend and descend at least one step with LRAD and no more than CGA to allow safe home entrance. Days to Meet Goals 5 Frequency of Treatment Frequency Of Treatment Once a Day Treatment Plan Physical Therapy Treatment Plan Bed Mobility Training,Transfer Training,Gait Training, Therapeutic Exercise,Balance Retraining,Discharge Planning, Hot or Cold Pack,Neuromuscular Re-ed,Coordination Retraining ,Manual Therapy Recommendations To Nursing Amount of Assist Needed 1 Person Assist Discharge Recommendations PT Discharge Recommendations Home with 08/01 Assist Available,Home Health Transportation Needs at Discharge Private Vehicle
[2023-11-03 21:55] VITALS: PULSE 82; RESP 16; O2SAT 96
[2023-11-03 23:00] VITALS: BP 155/64; PULSE 86; RESP 16; TEMP 36.4; O2SAT 96
[2023-11-04 07:39] VITALS: PULSE 84; RESP 16; O2SAT 96
[2023-11-04] MEDS: BUDESONIDE 0.5 MG/2 ML NEB INH ×2 (07:39→20:11)
[2023-11-04 08:00] VITALS: BP 159/72; PULSE 83; RESP 16; TEMP 36.9; O2SAT 97
[2023-11-04] MEDS: risperiDONE 0.25 MG TABLET 0.5 MG PO ×2 (08:24→19:49)
[2023-11-04] MEDS: ENOXAPARIN 40 MG/0.4 ML SYRINGE SUBCUT (08:24)
--- NOTE | 2023-11-04 11:37 | PM.PN.1 ---
Subjective Subjective Interval history: She is doing well. No pain or dyspnea. She is waiting for acceptance to a new assisted living facility, per case management cannot accept until Sunday. Exam Vital Signs (past 8 hours): - 11/04/23 07:00 11/04/23 07:39 11/04/23 08:00 Temperature 98.4 F Pulse Rate 84 83 Respiratory Rate 16 16 Blood Pressure 159/72 H Pulse Oximetry 96 97 Oxygen Delivery Method Room Air Room Air Oxygen Flow Rate 0 Fraction of Inspired Oxygen 21 Fraction of Inspired Oxygen 21 SaO2/FiO2 Ratio 457 Oxygen Delivery Method Room Air Oxygen Flow Rate 0 Narrative Exam Narrative: Sitting in a chair. NAD, alert and oriented. Fluent speech. Lungs are clear, normal rate and effort. Heart is regular, no murmur gallop or rub. Abdomen is soft, non distended. Extremities are free of edema. Objective Labs 10/31/23 05:40 10/31/23 05:40 [facility] Medical History HTN (hypertension) Cognitive deficits Social History household members: none Smoking Status: Never smoker alcohol intake: former Assessment & Plan Assessment & Plan narrative: 1. Schizophrenia with hallucinations, present on admission and improved with new medication. 2. Gait instability and falls, present on admission and improving. 3. Urinary retention, present on admission and resolved. 4. Orthostatic hypotension, present on admission and improved. Holding blood pressure medications. 5. Hypertension, present on admission stable without her medications. All of her home medications were held and she is now on a simple regimen of hydralazine t.i.d. which appears to be reasonable with her blood pressure and orthostasis. 6. COPD, present on admission and stable. PLAN: -continue current medications without change. -awaiting logistics for discharge to assisted living, currently unable to accept until Saturday 11/04. Estimated date of discharge is 11/04 Patient was medically cleared and has no ongoing medical issues requiring assessment.
--- NOTE | 2023-11-04 11:41 | PT.IPTN ---
Current Diagnoses Metabolic encephalopathy (10/25/23) Essential (primary) hypertension (10/25/23) Urinary tract infection, site not specified (10/25/23) Other symptoms and signs involving cognitive functions and awareness (10/25/23) Physical Therapy Treatment Note M2 PT-IP Current Condition Start: 10/28/23 09:34 Freq: NEEDED Status: Active Protocol: Document 10/28/23 10:20 MB (Rec: 10/28/23 11:01 MB [id number]) Physical Therapy Current Condition Current Condition Evaluation Date 10/28/23 Treatment Diagnosis GLF, confusion M3 PT-IP Subjective Start: 10/28/23 09:34 Freq: NEEDED Status: Active Protocol: Document 11/04/23 11:26 KS (Rec: 11/04/23 12:24 KS [id number]) Subjective Physical Therapy Visit Type Type Treatment Note Visit Start Time 11:26 Visit Stop Time 11:41 Number of [place] Visits 4 Physical Therapy Visit Comments Patient Comments Pt found resting in chair, she is pleasantly confused. Pt is agreeable to PT. M4 PT-IP Mobility and Gait Start: 10/28/23 09:34 Freq: NEEDED Status: Active Protocol: Document 11/04/23 11:26 KS (Rec: 11/04/23 12:24 KS [id number]) PT-Transfer Assessment Sit to and From Stand Sit to and from Stand Standby Assistance Equipment Transfer Assistive Device Gait Belt,Front Wheeled Walker Orthotic/Prosthetic Devices or Brace: No Transfers Transfer Destination Chair Transfer Technique ambulated Transfer Ability Level of Assist Standby Assistance,Contact Guard Assistance Comments Mobility Comments Pt in chair, agreeable to ambulate. SBA for sit<>stand w / FWW. Pt ambulated ~50 ft in room before reporting fatigue and requesting to go back to chair. Pt left in chair w/ all needs in reach. Gait Assessment Gait Gait Assistance Required: Contact Guard Assist Distance (Feet) 50 Able to Maintain Weight Bearing Status Yes During Gait Assistive Devices Assistive Device Gait Belt,Front Wheeled Walker Orthotic/Prosthetic Devices or Brace: No Gait Deviations General Gait Pattern Antalgic,Decreased Stride Length,Decreased Feet Clearance Factors Limiting Gait Function Factors Limiting Gait Function Decreased Activity Tolerance, Decreased Strength,Difficulty Following Directions, Incoordination,Limited Range of Motion,Pain,Poor Balance, Poor Safety Awareness Comments Gait Comments Needs cues to avoid obstacles. PT-Balance Assessment Sitting Balance and Reactions Static Sitting Balance Ability Good Dynamic Sitting Balance Ability Fair Standing Balance and Reactions Static Standing Balance Ability Fair Dynamic Standing Balance Ability Fair Device Used RW M5 PT-IP Objective Assessments Start: 10/28/23 09:34 Freq: NEEDED Status: Active Protocol: Document 10/28/23 10:20 MB (Rec: 10/28/23 11:01 MB [id number]) Orientation Orientation/Cognition Level of Alertness Confusional State Orientation Name,Age,Birthday,Month,Date, Year Language Function Ability No Deficits Noted Safety Awareness Decreased Safety Awareness Memory Description 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,Rfid Strategist Impaired Gross Range of Motion Upper Extremity ROM Assessment Within Functional Limits Lower Extremity ROM Assessment Within Functional Limits Strength Upper Extremity Strength Assessment Within Functional Limits Lower Extremity Strength Assessment Within Functional Limits Comments Strength Comments Scab over left knee, some areas of ecchymosis M6 PT-IP Treatment Start: 10/28/23 09:34 Freq: NEEDED Status: Active Protocol: Document 11/04/23 11:26 KS (Rec: 11/04/23 12:24 KS [id number]) Physical Therapy Treatment Education Education Provided Safety M7 PT-IP Assessment and Plan Start: 10/28/23 09:34 Freq: NEEDED Status: Active Protocol: Document 11/04/23 11:26 KS (Rec: 11/04/23 12:24 KS [id number]) PT Summary Assessment and Plan Potential Rehabilitation Potential Fair Summary Impairments Pain,ROM,Strength,Balance, Coordination,Sensation,Tone, Cognition,Bed Mobility, Transfers,Gait,Activity Tolerance Progress Towards Goals Progressing Toward Goals Assessment Summary Pt still requiring SBA to CGA for ambulation using FWW. Able to ambulate 50 ft today before requesting to rest. Poor safety awareness but able to follow cues well. PT is recommending home with 24/7 and HHPT. Pt is to go to [facility] soon. Goals Bed Mobility Goal Independent Transfer Goal Independent,Front Wheeled Walker,Four Wheeled Walker Gait Goal Independent,Front Wheel Walker ,Four Wheel Walker Gait Distance 100 Other Goals Pt will ascend and descend at least one step with LRAD and no more than CGA to allow safe home entrance. Days to Meet Goals 5 Frequency of Treatment Frequency Of Treatment Once a Day Treatment Plan Physical Therapy Treatment Plan Bed Mobility Training,Transfer Training,Gait Training, Therapeutic Exercise,Balance Retraining,Discharge Planning, Hot or Cold Pack,Neuromuscular Re-ed,Coordination Retraining ,Manual Therapy Recommendations To Nursing Amount of Assist Needed 1 Person Assist Discharge Recommendations PT Discharge Recommendations Home with 08/01 Assist Available,Home Health Transportation Needs at Discharge Private Vehicle
--- NOTE | 2023-11-04 15:17 | CM.DPC ---
DCP LTC planning cont: Per MD, pt remains medically stable to discharge and awaiting pt to be admitted to [facility] tomorrow Mon when they have staff physical therapy assistant available for admission. 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 MICHELLE updated MD. Plan: MICHELLE to follow closely in the AM with [facility] Danielle [phone] to confirm they have all admission pwk and if they will fill the meds for plan of discharge for LTC via Dtr POV in the AM around 0900. Cecilio Cloud
[2023-11-04 19:33] VITALS: BP 175/73; PULSE 69; RESP 17; TEMP 36.6; O2SAT 99
[2023-11-05] MEDS: ENOXAPARIN 40 MG/0.4 ML SYRINGE SUBCUT (08:03)
[2023-11-05] MEDS: ACETAMINOPHEN 325 MG TABLET 650 MG PO (08:03)
[2023-11-05] MEDS: risperiDONE 0.25 MG TABLET 0.5 MG PO (08:03)
[2023-11-05 08:38] VITALS: PULSE 88; RESP 14; O2SAT 96
[2023-11-05] MEDS: BUDESONIDE 0.5 MG/2 ML NEB INH (08:38)
[2023-11-05 09:00] VITALS: BP 146/81; PULSE 82
--- NOTE | 2023-11-05 09:08 | PM.DS.1 ---
History of Present Illness History of Present Illness Chief complaint: GLF,hip pain,unknown downtime Narrative: 83-year-old female with history of hypertension, dyslipidemia, patient has some known cognitive decline but was found down on the floor. Had a fall at some point patient does not recall if it was yesterday or today. EMS states she had urinated herself but it has since dried. No obvious skin breakdown. Family had tried to call her yesterday and could not get a hold of her At the time of admission unable to provide history, drowsy, confused Patient actively hallucinating and having delusions. According to daughter and son-in-law she was normal a few days ago. They also noted she has a history of schizophrenia diagnosed in the and was at that time in a mental hospital. Hasn't been on psych meds since the . Spoke with psychiatry who recommending trialing risperidone. Discharge Providers Provider Date of admission: 10/25/23 18:25 Discharge Date: 11/05/23 Consults: 10/28/23 00:01 Consult to Physical Therapy Evaluate & Treat Comment: Physician Instructions: Evaluate and Treat 10/29/23 08:21 Consult to Occupational Therapy Evaluate & Treat Comment: Physician Instructions: Evaluate and treat 11/05/23 08:41 Consult to Home Health Routine Comment: UTI, weakness Reason For Exam: Set up RN/PT/PIPE ORGAN BUILDER for discharge to [facility] Discharge provider: Napoleon Morales DO Summary Hospital Course Discharge Diagnosis: 1. Schizophrenia with hallucinations, present on admission and improved with new medication. 2. Gait instability and falls, present on admission and improving. 3. Urinary retention, present on admission and resolved. 4. Orthostatic hypotension, present on admission and improved. Holding blood pressure medications. 5. Hypertension, present on admission stable without her medications. All of her home BP meds stopped due to significant orthostasis. 6. COPD, present on admission and stable. Hospital Course: Admitted after being found down at home. Was having hallucinations, delusions and paranoia. Spoke with psych given her h/o of schizophrenia and recommended trialing risperidone which patient tolerated well and her symptoms improved. She was deemed not safe to return home, so was kept in the hospital for 11 days while a memory care facility was found. She was discharged to [facility] on 11/04. Her home BP meds were stopped due to orthostasis and not needing aggressive BP control due to her age. Exam Vital Signs (past 8 hours): - 11/05/23 08:38 11/05/23 09:00 Pulse Rate 88 82 Respiratory Rate 14 Blood Pressure 146/81 H Pulse Oximetry 96 Oxygen Delivery Method Room Air Fraction of Inspired Oxygen 21 SaO2/FiO2 Ratio 457 Oxygen Delivery Method Room Air Oxygen Flow Rate 0 Narrative Exam Narrative: Sitting in a chair. NAD, alert and oriented. Fluent speech. Lungs are clear, normal rate and effort. Heart is regular, no murmur gallop or rub. Abdomen is soft, non distended. Extremities are free of edema. Objective Labs 10/31/23 05:40 10/31/23 05:40 [facility] Medical History HTN (hypertension) Cognitive deficits Social History household members: none Smoking Status: Never smoker alcohol intake: former Discharge Plan Discharge Plan Patient Disposition: Assisted Living Other facility: [facility] Discharge orders & Medications Discharge Orders: Discharge (Order); Ordered 11/05/23 Ordered By: Napoleon Morales Prescriptions: New risperidone 0.5 mg tablet 0.5 mg PO BID Qty: 60 0RF Continued Trelegy Ellipta 100-62.5-25 mcg blister with device 1 ea inhalation DAILY Discontinued AMLODIPINE BESYLATE (NORVASC) 2.5 mg PO DAILY Qty: 0 Candesartan Cilexetil (Atacand) 32 mg PO DAILY Qty: 0 hydralazine 25 mg tablet 25 mg PO TID simvastatin 20 mg tablet 10 mg PO ONCE PM hydrochlorothiazide 25 mg tablet 25 mg PO QAM Diet/Activity/Treatments Diet: Regular Special Rehabilitation Services Reason for rehabilitation: Recovery r/t decondition Rehab type: Physical therapy and Home health Visit Report/Discharge Packet Stand Alone Forms: Patient Portal/API, Stroke Signs & Symptoms
--- NOTE | 2023-11-05 10:09 | PC.NURSE ---
Discharge Note Patient A&O, VSS, RA, no complaints of pain/discomfort. Patient agreeable to discharge plan. Discharge packet reviewed with patient, all questions/concerns addressed. Patient able to dress self with assistance of daughter. Patient able to pack all belongings with help of daughter. Patient taken down via wheelchair to POV.
--- NOTE | 2023-11-05 10:36 | CM.DPC ---
DCP Discharge LONG TERM Per MD, pt remains medically stable to discharge to Assisted Living today and no identified barriers to discharge and pt's meds reduced to two medications. MD printed script for Risperidone and family will fill at [facility] if needed as [facility] uses a mail-order pharmacy. SW called [facility] and spoke to their RN Jaqui Buenrostro and updated on plan of discharge this morning via Dtr POV and faxed updated PT note, signed med list and script, discharge summary and orders to requested fax [phone] for review. Updated Jaqui that [facility] referral was made as well. SW met bedside with pt and adult Dtr while RN was providing discharge instructions and both remain in agreement with discharge today to [facility] and furniture moved into the new apt over the weekend by family and no further concerns at this time. MICHELLE updated that [facility] referral was made and alerted to discharge today and pt and Dtr very appreciative. CHRISTEL Roland kindly secure emailed [facility] the discharge summary, signed F2F, and HH orders and Yeni confirmed they received. Plan: Patient to discharge to [facility] today via Dtr POV around 0930 for transition into care home care in Assisted Living near Dtr and [facility]. 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
== END 2023-11-05 10:00 | DRG 885 ==
LOC: ED 17:21 → AC 18:26
PROVIDERS: Internal Medicine; Student in an Organized Health Care Education/Training Program; Admitting Provider Internal Medicine; Emergency Provider Emergency Medicine; Referring Provider Emergency Medicine; Visit Provider Internal Medicine
DX: F20.9 Schizophrenia, unspecified (principal); I10 Essential (primary) hypertension; J44.9 Chronic obstructive pulmonary disease, unspecified; R33.9 Retention of urine, unspecified; I95.1 Orthostatic hypotension; R26.89 Other abnormalities of gait and mobility; E78.5 Hyperlipidemia, unspecified; R41.89 Other symptoms and signs involving cognitive functions and awareness; Z66 Do not resuscitate; Z91.81 History of falling
CPT/HCPCS: 36415; 70450; 71045; 72125; 73502; 73560; 76705; 80048; 80053; 81001; 82550; 83605; 83690; 83735; 83880; 84145; 84484; 85025; 85610; 87040; 93005; 93010; 94640; 96365; 97116; 97129; 97161; 97166; 97530; 97535; 99284; 99285; J0696; J1650